=== PATIENT | female | born 1965 | race Caucasian/White ===

== ENCOUNTER 2020-09-13 13:01 | Emergency (ER) | payer OTHER, SELFPAY ==
[2020-09-13 13:25] VITALS: BP 140/89; PULSE 66; RESP 20; TEMP 37; O2SAT 100; BMI 20.5
--- NOTE | 2020-09-13 13:56 | HMH.EDUTC ---
[facility] [place] Impression: Exposure to COVID-19 virus Disposition: Home, Self-Care Condition on Discharge: Good Instructions: DI for Cough -- Adult, DI for COVID-19 (Suspected or Confirmed ), Coronavirus Disease 2019, COVID-19: Testing and Tracing, Preventing the Spread of Coronavirus Discharge Instructions Additional Instructions: *Monitor Temp, Over the counter Motrin or Tylenol as directed/as needed Tylenol every 4 hours and Motrin every 6 hours (as long as your family doctor has told you that you can take it) for fever or pain. and straight to ER if unable to lower temp less than 101.0 after medication given Follow up IMMEDIATELY for new or worsening symptoms or no Noticeable improvement over the next 48-72 hours. 911 for difficulty breathing or swallowing Follow up with your Family Doctor if your symptoms worsen or no improvement You were tested for today for COVID19 your test result should be back in the next 24-48 hours, you may call to the [facility] to see if your test results are back in the next 48 hours [phone] [facility] hours are 9am-9pm You was given a handout with instructions for Self Quarantine and Self isolation for while you wait on test results and what to do if they are positive If you are positive the Health Dept will be contacting you also Prescriptions: Benzonatate [Tessalon Perle 100mg Cap*] 100 mg PO TID PRN #15 cap PRN Reason: Cough Transmission Status: Pending to [facility] Referrals: Isauro Leach MD [Primary Care Provider] - Time of Disposition: 14:08 Medical Decision Making - Chuck Inquiry Pt receiving controlled substance: No Chuck was queried for this patient: No Vital Signs: 09/13/20 13:25 Temperature 98.6 F Temperature Source Oral Pulse Rate [Right Brachial] 66 Respiratory Rate 20 Blood Pressure [Right Arm] 140/89 Blood Pressure Mean [Right Arm] 106 Blood Pressure Source [Right Arm] Automatic Cuff Blood Pressure Position [Right Arm] Sitting 02 Sat by Pulse Oximetry 100 Oxygen Delivery Method Room Air Orders (Tests/Meds): ORDERS Category Date Time Status Covid-19 Nasal PCR ([facility]) Routine Lab 09/13/20 13:25 [place] [facility] [place] - General Stated complaint: covid exposure, back and chest achy,runny nose Time Seen by Provider: 12/31/20 13:56 Mode of Arrival: Ambulatory Source of Information: Patient Limitations: No Limitations Description of Symptoms (Recalled from Triage Doc. by RN): REQUESTING COVID TEST D/T EXPOSURE; C/O RIGHT SIDE BACK PAIN, DRY COUGH, AND CHILLS X 2 DAYS HEENT Symptoms (Recalled from RN notes): No Resp Symptoms (Recalled from RN notes): Yes Skin Symptoms (Recalled from RN notes): No MS Symptoms (Recalled from RN notes): Yes Functional Status (Recalled from RN notes): WNL - History of Present Illness Provider Complaint: Patient states that she was recently around someone that tested positive for COVID States that she has been having body aches, chills, feeling like she may have a low grade fever and right upper back ache on and off with cough, State that she wanted to get tested for COVID States that right now she is not having any back pain at this time - Related Data Previous Rx's Medication Instructions Recorded Benzonatate [Tessalon Perle 100mg 100 mg PO TID PRN #15 cap 09/13/20 Cap*] Allergies Allergy/AdvReac Type Severity Reaction Status Date / Time morphine Allergy Verified 09/13/20 13:40 - Worker's Comp Is this a Worker's Comp case?: No [facility] History - Hepatitis A Screen Drug use history?: No High risk sexual behaviors?: No History of sexually transmitted infection?: No Currently employed?: No Childcare worker?: No Do you have indoor plumbing?: Yes Do you have electricity?: Yes Attestation statement:: This patient has been screened for Hepatitis A risk factors. I have reviewed the patient's past medical history: Yes - Social History Smoking Status: Never smoker Alcohol Intake: never S
[2020-09-13 14:08] VITALS: BP 140/89; PULSE 66; RESP 20; TEMP 37; O2SAT 100
--- NOTE | 2020-09-13 18:18 | PC.NURSE ---
PATIENT NOTIFIED OF POSITIVE COVID TEST AT THIS TIME
== END 2020-09-13 14:10 | disposition home or self-care (01) ==
PROVIDERS: Emergency Provider Nurse Practitioner; PCP Internal Medicine Adolescent Medicine
DX: U07.1 COVID-19 (principal); Z88.5 Allergy status to narcotic agent
CPT/HCPCS: 99202; G0463; U0003

== ENCOUNTER → 2020-09-24 12:37 | Outpatient (CLI) | payer OTHER, SELFPAY ==
[2020-09-24 14:23] LABS: Basophils % 0.7 % (0.1-2.0); Eosinophils # 0.1 K/mm3 (0.0-0.4); Eosinophils % 1.9 % (0.1-12.0); Hematocrit 50.1 % (37.0-47.0); Hemoglobin 16.2 g/dL (12.2-16.2); Lymphocytes # 1.8 K/mm3 (0.7-4.5); Lymphocytes % 35.3 % (10-50); Mean Corpuscular HGB Conc 32.2 g/dL (31.8-35.4); Mean Corpuscular Hemoglobin 29.9 pg (27.0-31.2); Mean Platelet Volume 7.9 fl (7.4-10.4); Monocytes # 0.4 K/mm3 (0.1-1.0); Monocytes % 7.1 % (1.7-9.3); Neutrophils # 2.8 K/mm3 (1.8-7.8); Neutrophils % 55.1 % (37.0-80.0); Platelet Count 418 K/mm3 (142-424); Red Blood Count 5.39 M/mm3 (4.20-5.40); White Blood Count 5.1 K/mm3 (4.8-10.8)
[2020-09-24 15:24] LABS: Chloride 100 mmol/L (98-107); Sodium 138 mmol/L (136-145)
[2020-09-24 15:25] LABS: Potassium 4.6 mmoL/L (3.5-5.1)
[2020-09-24 15:27] LABS: Alanine Aminotransferase 37 U/L (12-78); Albumin Level 5.2 g/dl (3.5-5.0); Albumin/Globulin Ratio 1.3 (1.1-1.8); Alkaline Phosphatase 66 U/L (38-126); Anion Gap 14.6 mEq/L (5-15); Aspartate Amino Transferase 35 U/L (14-36); Bilirubin,Total 0.7 mg/dl (0.2-1.3); Blood Urea Nitrogen 15 mg/dl (7-17); Carbon Dioxide 28 mmol/L (22.0-30.0); Cholesterol 283 mg/dl (140-200); Estimated Glomerular Filt Rate 88 ml/min (>60); GFR (African American) 106 ML/MIN (>60); Globulin 3.9 g/dL (1.3-3.2); Total Protein,Serum 9.1 g/dl (6.3-8.2); Triglycerides 149 mg/dl (30-150); VLDL Cholesterol 30 mg/dL (0-40)
[2020-09-24 15:28] LABS: Calcium 10.5 mg/dl (8.4-10.2); Chol/HDL Ratio 3.7 (1-3.5); Glucose 93 mg/dl (74-100); HDL Cholesterol 76 mg/dl (40-60)
[2020-09-24 15:38] LABS: Direct LDL Cholesterol 158.93 mg/dL (100-129)
[2020-09-24 15:58] LABS: Thyroid Stimulating Hormone 2.18 uIU/mL (0.465-4.68)
[2020-09-26 10:20] LABS: FSH 45.3 mIU/mL (.); LH 12.1 mIU/mL (.)
== END ==
PROVIDERS: Visit Provider Internal Medicine Adolescent Medicine
DX: R07.89 Other chest pain (principal); N95.1 Menopausal and female climacteric states
CPT/HCPCS: 36415; 80053; 80061; 83001; 83002; 84443; 85025

== ENCOUNTER → 2020-09-27 09:42 | Outpatient (CLI) | payer OTHER, SELFPAY ==
--- NOTE | 2020-09-27 09:45 | MM_ITS ---
PROCEDURE: MM DIG SCREENING MAMM BI W/CAD Digital Breast Tomosynthesis Included CLINICAL INDICATION: PERIMENOPAUSAL Personal or family history of breast cancer COMPARISON: This is a baseline screening exam, patient without complaints TECHNIQUE: Standard CC and MLO images and 3D Tomosynthesis was obtained. R2 CAD reviewed. FINDINGS: Mild fibroglandular densities are seen in the upper outer quadrants of both breasts. There is a small nodular density outer quadrant left breast only seen on the exaggerated CC view. This has benign features however recommend the patient return for spot compression view and ultrasound since this is a baseline study. There are no suspicious microcalcifications. IMPRESSION: Mild to moderate breast density with asymmetric nodular density left breast BI-RAD Category: 0 Need Additional Imaging Evaluation FOLLOW-UP: IMM Immediate Follow-up Recommended (A letter has been sent to the patient regarding results of the study.) Dictated by: Dr. Roldan Baker MD 10/03/2020 10:02 Dr. Roldan Baker MD in [place] 10/03/2020 10:02
== END ==
PROVIDERS: PCP Internal Medicine Adolescent Medicine; Visit Provider Internal Medicine Adolescent Medicine
DX: Z12.31 Encounter for screening mammogram for malignant neoplasm of breast (principal); N95.1 Menopausal and female climacteric states
CPT/HCPCS: 77063; 77067

== ENCOUNTER → 2020-10-22 13:47 | Outpatient (CLI) | payer OTHER, SELFPAY ==
--- NOTE | 2020-10-22 13:58 | US_ITS ---
PROCEDURE: US BREAST LT COMPLETE CLINICAL INDICATION: ABN MAMM COMPARISON: No exams were available for comparison FINDINGS: There are tiny benign-appearing cystic lesions in the subareolar region. There is no suspicious solid lesion identified. There are couple normal appearing nodes in the axilla. There is a small oval hypoechoic nodular lesion 2 o'clock position outer breast with internal septations in this is likely a small complex cyst. IMPRESSION: No suspicious lesion seen on ultrasound exam and recommend the patient continue with yearly screening mammography Dictated by: Dr. Roldan Baker MD 10/25/2020 07:48 Dr. Roldan Baker MD in [place] 10/25/2020 07:48
--- NOTE | 2020-10-22 13:58 | MM_ITS ---
PROCEDURE: MM DIG MAMM DX UNILAT LT CAD Digital Breast Tomosynthesis Included CLINICAL INDICATION: ABN MAMM COMPARISON: MG MM DIG SCREENING MAMM BI W/CAD from 09/27/2020 US US BREAST LT COMPLETE from 10/22/2020 TECHNIQUE: Standard CC and MLO images and 3D Tomosynthesis was obtained. R2 CAD reviewed. Spot compression MLO and CC views were obtained as well. FINDINGS: Mild asymmetrical glandular elements are seen upper outer quadrant. There is a small nodular density near the axillary tail likely a low-lying node. Ultrasound performed the same date showed tiny benign-appearing cystic lesions in the subareolar region but no other abnormality. IMPRESSION: Essentially unremarkable problem solving views and recommend the patient continue with yearly screening mammography BI-RAD Category: 2 Benign Finding(s) FOLLOW-UP: 1YR 1 Year Follow-up (A letter has been sent to the patient regarding results of the study.) Dictated by: Dr. Roldan Baker MD 10/25/2020 07:46 Dr. Roldan Baker MD in [place] 10/25/2020 07:46
== END ==
PROVIDERS: PCP Internal Medicine Adolescent Medicine; Visit Provider Internal Medicine Adolescent Medicine
DX: R92.8 Other abnormal and inconclusive findings on diagnostic imaging of breast (principal)
CPT/HCPCS: 76641; 77061; 77065; G0279

== ENCOUNTER → 2021-06-12 16:25 | Outpatient (CLI) | payer OTHER, SELFPAY ==
[2021-06-12 17:18] LABS: Basophils % 0.5 % (0.1-2.0); Eosinophils # 0.1 K/mm3 (0.0-0.4); Eosinophils % 2.4 % (0.1-12.0); Hematocrit 46.2 % (37.0-47.0); Hemoglobin 14.7 g/dL (12.2-16.2); Lymphocytes # 2.7 K/mm3 (0.7-4.5); Lymphocytes % 46.7 % (10-50); Mean Corpuscular HGB Conc 31.9 g/dL (31.8-35.4); Mean Corpuscular Hemoglobin 29.7 pg (27.0-31.2); Mean Corpuscular Volume 93.1 fl (81-99); Mean Platelet Volume 7.2 fl (7.4-10.4); Monocytes # 0.5 K/mm3 (0.1-1.0); Neutrophils # 2.4 K/mm3 (1.8-7.8); Neutrophils % 41.4 % (37.0-80.0); Platelet Count 364 K/mm3 (142-424); Red Blood Count 4.96 M/mm3 (4.20-5.40); Red Cell Distribution Width 12.9 % (11.5-17.5); White Blood Count 5.7 K/mm3 (4.8-10.8)
[2021-06-12 17:24] LABS: Chloride 104 mmol/L (98-107); Potassium 5.2 mmoL/L (3.5-5.1); Sodium 139 mmol/L (136-145)
[2021-06-12 17:26] LABS: Blood Urea Nitrogen 16 mg/dl (7-17); Estimated Glomerular Filt Rate 105 ml/min (>60); GFR (African American) 127 ML/MIN (>60)
[2021-06-12 17:27] LABS: Alanine Aminotransferase 20 U/L (12-78); Albumin Level 4.6 g/dl (3.5-5.0); Albumin/Globulin Ratio 1.4 (1.1-1.8); Alkaline Phosphatase 55 U/L (38-126); Anion Gap 13.2 mEq/L (5-15); Aspartate Amino Transferase 24 U/L (14-36); Bilirubin,Total 0.2 mg/dl (0.2-1.3); Calcium 9.7 mg/dl (8.4-10.2); Carbon Dioxide 27 mmol/L (22.0-30.0); Globulin 3.4 g/dL (1.3-3.2); Glucose 90 mg/dl (74-100)
== END ==
PROVIDERS: Visit Provider Internal Medicine Adolescent Medicine
DX: R10.11 Right upper quadrant pain (principal); R10.13 Epigastric pain
CPT/HCPCS: 36415; 80053; 85025

== ENCOUNTER → 2021-06-14 09:24 | Outpatient (CLI) | payer OTHER, SELFPAY ==
[2021-06-17 11:05] LABS: H. pylori Stool Ag, EIA Negative (Negative)
== END ==
PROVIDERS: Visit Provider Internal Medicine Adolescent Medicine
DX: R10.11 Right upper quadrant pain (principal); R10.13 Epigastric pain
CPT/HCPCS: 87338

== ENCOUNTER → 2021-06-17 07:51 | Outpatient (CLI) | payer OTHER, SELFPAY ==
--- NOTE | 2021-06-17 07:54 | US_ITS ---
PROCEDURE: US GALLBLADDER CLINICAL INDICATION: RUQ PAIN COMPARISON: No exams were available for comparison FINDINGS: Pancreas: Unremarkable/Not well seen Liver: Unremarkable. There is appropriate direction of blood flow within a non dilated portal vein. Right kidney: Unremarkable appearing. No hydronephrosis. Gallbladder: There are numerous gallstones. No gallbladder wall thickening, pericholecystic fluid, or biliary dilatation is evident. IMPRESSION: Cholelithiasis otherwise negative Dictated by: Kip Barlow MD 06/17/2021 19:06 Kip Barlow MD in [place] 06/17/2021 19:06
== END ==
PROVIDERS: PCP Internal Medicine Adolescent Medicine; Visit Provider Internal Medicine Adolescent Medicine
DX: R10.11 Right upper quadrant pain (principal)
CPT/HCPCS: 76705

== ENCOUNTER → 2021-07-01 14:22 | Outpatient (CLI) | payer OTHER, SELFPAY ==
[2021-07-01 14:54] LABS: Basophils # 0.1 K/mm3 (0-0.2); Basophils % 1.4 % (0.1-2.0); Eosinophils # 0.1 K/mm3 (0.0-0.4); Eosinophils % 1.4 % (0.1-12.0); Hematocrit 47.5 % (37.0-47.0); Hemoglobin 15.4 g/dL (12.2-16.2); Lymphocytes # 2.5 K/mm3 (0.7-4.5); Lymphocytes % 42.3 % (10-50); Mean Corpuscular HGB Conc 32.4 g/dL (31.8-35.4); Mean Corpuscular Hemoglobin 30.3 pg (27.0-31.2); Mean Corpuscular Volume 93.4 fl (81-99); Mean Platelet Volume 8.1 fl (7.4-10.4); Monocytes # 0.6 K/mm3 (0.1-1.0); Monocytes % 10.1 % (1.7-9.3); Neutrophils # 2.6 K/mm3 (1.8-7.8); Neutrophils % 44.8 % (37.0-80.0); Platelet Count 372 K/mm3 (142-424); Red Blood Count 5.09 M/mm3 (4.20-5.40); Red Cell Distribution Width 13.4 % (11.5-17.5); White Blood Count 5.8 K/mm3 (4.8-10.8)
[2021-07-01 15:16] LABS: Alanine Aminotransferase 24 U/L (12-78); Albumin Level 4.6 g/dl (3.5-5.0); Albumin/Globulin Ratio 1.4 (1.1-1.8); Alkaline Phosphatase 45 U/L (38-126); Anion Gap 9.6 mEq/L (5-15); Aspartate Amino Transferase 25 U/L (14-36); Bilirubin,Total 0.4 mg/dl (0.2-1.3); Blood Urea Nitrogen 11 mg/dl (7-17); Calcium 10.3 mg/dl (8.4-10.2); Carbon Dioxide 32 mmol/L (22.0-30.0); Chloride 101 mmol/L (98-107); Estimated Glomerular Filt Rate 88 ml/min (>60); GFR (African American) 106 ML/MIN (>60); Globulin 3.4 g/dL (1.3-3.2); Glucose 83 mg/dl (74-100); Potassium 4.6 mmoL/L (3.5-5.1); Sodium 138 mmol/L (136-145)
== END ==
PROVIDERS: Visit Provider Surgery
DX: Z01.812 Encounter for preprocedural laboratory examination (principal); Z11.52 Encounter for screening for COVID-19; K80.20 Calculus of gallbladder without cholecystitis without obstruction
CPT/HCPCS: 36415; 80053; 85025; C9803; U0003; U0005

== ENCOUNTER 2021-07-02 07:10 | Day surgery (SDC) | payer OTHER, SELFPAY ==
[2021-07-02] VITALS (12 sets, daily range): BP systolic 106–156; BP diastolic 75–98; PULSE 54–83; RESP 14–18; TEMP 36.2–43; O2SAT 94–100; BMI 21.1
[2021-07-02 08:01] LABS: HCG Qualitative, Serum Negative (Negative)
--- NOTE | 2021-07-02 08:28 | HMH.ANESCL ---
[facility] Anesthesia Checklist - Patient Identification Patient Identification: Arm Band, Verbal (Name & ) - Structural Data Admitted From: Home Planned Operative Procedure/s: Laparascopic Cholecystectomy Consent for Planned Operative Procedure(s) Verified: Yes Verified Documents: Surgical Consent - NPO Status Verified Time NPO: 00:00 - Additional verifications Anesthesia Reactions: No Hx Blood Transfusions: No Blood Transfusion Reaction: No - Cardiovascular Assessment Heart Sounds: S1 & S2 Pulse Rhythm: Regular - Airway Assessment C-Spine Mobility Assessed: Yes TMJ Mobility Assessed: Yes - Neurological Assessment Level of Consciousness: Awake, Alert, Appropriate - Anesthesia Plan Anesthesia Risk discussed: Yes ASA Class: II Anesthesia Type: General [facility] History I have reviewed the patient's past medical history: Yes Medical History: Denies:: Cancer, Diabetes Mellitus Type 1, Diabetes Mellitus Type 2, Internal Pacemaker, MRSA, Seizures *Have you ever received a pneumonia vaccine?: Yes *Have you received a flu vaccine this season?: No Other Medical History: Denies: Blood Transfusion Reaction Anesthesia experience/problems:: no family history Other Surgeries: Yes: . No: Pacemaker Amputation: No Fractures: Yes (left arm) - *Social History Last grade of school completed: Advanced degree Smoking Status: Never smoker Alcohol Intake: never Substance Use Type: denies use *Occupational Status:: employed Housing: house Household Members: spouse *Travel in the last 8 weeks: None Family Hx:: Coronary Artery Disease, Diabetes
--- NOTE | 2021-07-02 09:17 | HMH.OPNOTE ---
Date of procedure: 07/02/21 Pre-op Diagnosis:: Symptomatic gallstones Post-op Diagnosis:: Same Procedure performed:: Laparoscopic cholecystectomy Surgeon:: Wilmer Herndon MD [employer] EXECUTIVE:: Other Anesthesia: GETA Estimated blood loss (mL): 15 Clinical Note:: Patient is a very pleasant 55-year-old female referred by Dr. Isauro Leach for gallstones. She states that about a year ago she was having some right upper flank pain. This was felt to be likely musculoskeletal. However, recently she has had more persistent symptoms of pain in the right back radiating around to her right upper quadrant and into her chest. This seems to be worse with certain foods. She had severe pain with eating chili. She has been limiting her diet significantly which has helped somewhat. She has significant nausea associated with the pain. She underwent gallbladder ultrasound which reveals numerous gallstones without any gallbladder wall thickening with a normal common bile duct. She has a very strong family history of gallbladder disease. Operative findings:: She had somewhat of a distended gallbladder with multiple small to moderate stones Operative note:: Patient was taken to the operating room. She was positioned in a supine position. General anesthesia was induced via endotracheal tube. Abdomen was prepped and draped in the standard surgical fashion. Subumbilical skin incision was made and while performing abdominal wall lift Veress needle was inserted. CO2 pneumoperitoneum was achieved to 15 mmHg. 11 mm optical trocar was inserted at the umbilicus. Intraperitoneal contents were visualized. She was positioned in reverse Trendelenburg left side down. A couple 5 mm trochars were inserted in the right upper abdomen. 10 mm trocar was inserted in the epigastrium. Gallbladder was easily identified and grasped retracted anteriorly and superiorly over the dome of the liver. Infundibulum of the gallbladder was grasped retracted anterior laterally. Blunt dissection was carried out the neck of the gallbladder bluntly incising the visceral peritoneum. The cystic duct and cystic artery were clearly identified and isolated. Cystic duct was multiply clipped and sharply divided. Cystic artery was carefully coagulated with MEL ultrasonic harmonic kb and divided. The gallbladder was dissected free from the liver in a retrograde fashion using MEL ultrasonic harmonic kb. Gallbladder was placed within an Endo Catch retrieval device and removed from the peritoneal cavity via the umbilical trocar site which required some extension of the fascial incision for delivery. Gallbladder fossa was inspected for hemostasis which was assured. Trochars were removed as CO2 pneumoperitoneum was evacuated. Fascia at the umbilicus was closed with several interrupted 0 Vicryl sutures. 0 Vicryl sutures placed in the anterior fascia at the epigastric site. Local anesthetic was infiltrated. Skin incisions closed with 4-0 Monocryl subcuticular fashion. Steri-Strips and dressings were applied. Condition: stable Disposition: PACU Specimens:: Gallbladder and contents Complications:: None immediate
--- NOTE | 2021-07-02 09:21 | P.PN_ITS ---
[facility] Anesthesia Record Part I Intake, IV Amount: 550 Estimated blood loss (mL): 10 Urine output (mL): 0 Blood Pressure: 156/96 SaO2: 94 Pulse Rate: 83 Respiratory Rate: 16 Temperature: 97.9 F Patient is:: Drowsy, Oral/Nasal airway Stable to PACU at:: 09:20
--- NOTE | 2021-07-02 11:41 | P.PN_ITS ---
[facility] Anesthesia Record Part II Discharge Time: 10:00 Destination: Home PACU nurse assessment reviewed?: Yes Patient Condition:: Good Anesthesia Complications:: None none Swallowing reflex intact?: Yes Cyanosis?: No Blood Pressure: 106/98 Pulse Rate: 63 Temperature: 97.1 F Mental Status: Alert & Oriented Pain level:: 5 Nausea and/or vomitting:: None Intake, IV Amount: 0
== END 2021-07-02 10:30 | disposition home or self-care (01) ==
LOC: OR 07:12
PROVIDERS: PCP Internal Medicine Adolescent Medicine; Visit Provider Surgery
PROC: 0FT44ZZ Resection of Gallbladder, Percutaneous Endoscopic Approach (ICD-10-PCS; CPT 47562; principal; 2021-07-02 10:00)
DX: K80.80 Other cholelithiasis without obstruction (principal); Z83.3 Family history of diabetes mellitus; Z82.49 Family history of ischemic heart disease and other diseases of the circulatory system; Z88.6 Allergy status to analgesic agent
CPT/HCPCS: 47562; 84703; 96374; J2405; J2710

== ENCOUNTER → 2021-10-30 10:46 | Outpatient (CLI) | payer OTHER, SELFPAY ==
--- NOTE | 2021-10-30 10:52 | MM_ITS ---
PROCEDURE INFORMATION: Exam: MG Bilateral Screening 3D Mammography Exam date and time: 10/30/2021 10:52 AM Age: 56 years old Clinical indication: Screening mammogram. TECHNIQUE: Imaging protocol: Bilateral Screening tomosynthesis and 2D mammography including computer-aided detection (CAD) when performed. COMPARISON: 1. MG MM DIG MAMM DX UNILAT LT CAD 10/22/2020 2:06 PM 2. MG MM DIG SCREENING MAMM BI W/CAD 09/27/2020 9:57 AM 3. US BREAST LT COMPLETE 10/22/2020 2:29 PM FINDINGS: MAMMOGRAPHY: Breast composition: The breast tissue is heterogeneously dense, which may obscure small masses. Mass: None. Architectural distortion: No new or suspicious architectural distortion. Calcifications: No new or suspicious calcifications are present Asymmetric density: No new or suspicious asymmetric density is present Skin thickening: None. Axillary adenopathy: None. IMPRESSION: No mammographic evidence of malignancy. Recommend annual screening mammography unless otherwise clinically indicated. ASSESSMENT: BI-RADS category 1: Negative
== END ==
PROVIDERS: PCP Internal Medicine Adolescent Medicine; Visit Provider Internal Medicine Adolescent Medicine
DX: Z12.31 Encounter for screening mammogram for malignant neoplasm of breast (principal)
CPT/HCPCS: 77063; 77067

== ENCOUNTER → 2021-11-04 11:48 | Outpatient (CLI) | payer OTHER, SELFPAY ==
--- NOTE | 2021-11-04 11:56 | XR_ITS ---
FINAL REPORT CLINICAL HISTORY: RIGHT ANTERIOR SHOULDER PAIN FINDINGS: RIGHT SHOULDER Three views demonstrate no acute fracture or dislocation. The visualized joint spaces are normally aligned. The soft tissues are unremarkable. IMPRESSION: No acute process. Reviewed, Interpreted and Dictated by Handy Saenz MD Transcribed by Trinidad Interiano Authenticated by Handy Saenz MD on 11/04/2021 02:58:37 PM [facility]
== END ==
PROVIDERS: PCP Internal Medicine Adolescent Medicine; Visit Provider Internal Medicine Adolescent Medicine
DX: M25.511 Pain in right shoulder (principal)
CPT/HCPCS: 73030

== ENCOUNTER 2021-12-13 11:00 | Outpatient (RCR) | payer OTHER, SELFPAY ==
--- NOTE | 2021-11-18 11:55 | HMH.OTOPEV ---
OT Inpatient Evaluation Rehab OT Outpatient Eval Start: 11/18/21 10:29 Freq: Status: Active Protocol: Document 11/18/21 10:51 AIMEE (Rec: 11/18/21 11:03 AIMEE [id number]) Electronically Signed By Radha Henderson OT 11/18/21 10:51 Outpatient Therapy Subjective History Subjective History 56 year female referred to skilled OP OT services for RUE shoulder pain. Patient stated having this pain for the past month. X-ray completed on with no acute findings. Chief Complaint Pain,Weakness Symptom Type Ache Symptoms Relieved By Nothing Symptoms Aggravated By Physical Activity Prior Functional Limitations None Current Functional Limitations Reaching,Lifting,Recreation Activity Symptom Description Intermittent Level of pain today (0-10) 1 Pain scale - at its best (0-10) 1 Pain scale - at its worst (0-10) 8 Shoulder/Elbow Eval Shoulder Objective Measurements Shoulder ROM Right Shoulder Abduction Active Range of 85 Motion (degrees) Shoulder Flexion Active Range of Motion 135 (degrees) Query Text: Shoulder External Rotation Active Range 80 of Motion (degrees) Shoulder Internal Rotation Active Range 60 of Motion (degrees) pain with active ROM shoulder exam right standard Shoulder MMT Shoulder Abduction Strength Grade 3- Fair- Shoulder Flexion Strength Grade 3- Fair- Infraspinatus/Teres Minor Strength Grade 3- Fair- Shoulder External Rotation Strength 3- Fair- Grade Shoulder Internal Rotation Strength 3- Fair- Grade Shoulder Special Tests impingement sign present shoulder exam right standard Shoulder Drop Arm Test Positive Right Shoulder Empty Can (Supraspinatus) Test Positive Right Shoulder Sal-Abhishek Impingement Positive Right Test Elbow Objective Measurements OT Outpatient Assessment Impairments Problems/Impairments Impaired Range of Motion, Impaired Strength,Subjective C /O Pain Prognosis Rehab Potential Good Clinical Impression Consistent with Diagnosis Yes Short Term Goals Number of Weeks 2 Increase Range of Motion Yes: AROM of R UE shld flex: 145; abd: 100; er:85; ir: 65 Increase Strength Yes: Improve RUE shoulder strength to 3- to 3/5 throughout Decrease Subjectiv
== END 2021-12-13 12:00 | disposition home or self-care (01) ==
LOC: OT 11:00
PROVIDERS: Visit Provider Internal Medicine Adolescent Medicine
DX: M25.511 Pain in right shoulder (principal)
CPT/HCPCS: 97010; 97014; 97110; 97140; 97165; 97530; G0283

== ENCOUNTER → 2023-03-10 13:13 | Outpatient (CLI) | payer OTHER, SELFPAY ==
--- NOTE | 2023-03-10 13:14 | US_ITS ---
PROCEDURE: US TRANSVAGINAL CLINICAL INDICATION: dyspareunia COMPARISON: No exams were available for comparison FINDINGS: UTERUS: 8cm x 4cmx 3cm with a combined endometrial thickness of 4.2mm. A Caesarean section scar is evident. 1. Fibroid is evident in the fundus of the uterus posteriorly. It measures 0.6 cm x 0.6 cm x 0.6 cm 2. Fibroid anteriorly and laterally to the right. It measures 1.5 cm by 1.9 cm x 1.9 cm. 3. Posterior fibroid measuring 2.8 cm by 1.6 cm by 2.2 cm. LEFT OVARY: [id number] with a volume of 8.5ml. RIGHT OVARY: 5cmx [id number] with a volume of 118.8ml. Within the right ovary there is a cyst measuring 5.4 cm by 5.0 cm x 6.2 cm Both ovaries are seen. Doppler flow to both ovaries are seen. There is no fluid in the cul-de-sac. IMPRESSION: 1. Uterus is anteverted and normal in shape and size. 2. There are 3 distinct fibroids within the uterus. The largest is 2.8 centimeters in size. 3. The left ovary appears normal. 4. The right ovary is almost entirely taken up by a 5.4 cm x 6 cm simple appearing cyst. 5. There is no fluid in the cul-de-sac. Dictated by: aCsey Calloway MD 03/11/2023 15:46 Casey Calloway MD in [place] 03/11/2023 15:46
--- NOTE | 2023-03-10 13:14 | MM_ITS ---
PROCEDURE INFORMATION: Exam: MG Bilateral Screening 3D Mammography Exam date and time: 03/10/2023 1:05 PM Age: 57 years old Clinical indication: Screening. No family history of breast cancer. TECHNIQUE: Imaging protocol: Bilateral Screening tomosynthesis and 2D mammography including computer-aided detection (CAD) when performed. COMPARISON: 1. MG MM DIG SCREENING MAMM BI W/CAD 10/30/2021 10:50 AM 2. MG MM DIG MAMM DX UNILAT LT CAD 10/22/2020 2:06 PM 3. MG MM DIG SCREENING MAMM BI W/CAD 09/27/2020 9:57 AM 4. US BREAST LT COMPLETE 10/22/2020 2:29 PM FINDINGS: MAMMOGRAPHY: Breast composition: There are scattered areas of fibroglandular density. Mass: No suspicious mass. Architectural distortion: None. Calcifications: No suspicious calcifications. Asymmetric density: None. Skin thickening: None. Axillary adenopathy: None. IMPRESSION: No mammographic evidence of malignancy. Annual screening is recommended unless otherwise clinically indicated. ASSESSMENT: BI-RADS Category 1: Negative
== END ==
PROVIDERS: PCP Internal Medicine Adolescent Medicine; Visit Provider Obstetrics & Gynecology
DX: N94.10 Unspecified dyspareunia (principal); Z12.31 Encounter for screening mammogram for malignant neoplasm of breast
CPT/HCPCS: 76830; 77063; 77067

== ENCOUNTER → 2023-05-20 12:43 | Outpatient (CLI) | payer OTHER, SELFPAY ==
--- NOTE | 2023-05-20 12:44 | US_ITS ---
PROCEDURE: US TRANSVAGINAL CLINICAL INDICATION: pelvic pain and ovarian cyst COMPARISON: US US TRANSVAGINAL from 03/10/2023 FINDINGS: Transvaginal sonographic images of the pelvis were obtained. UTERUS: 7.9 cm x 4.5 cmx 3.1 cm with a combined endometrial thickness of 3.9mm. Three fibroids are seen. scar is visualized. Fibroid 1. 1.1 cm x 0.6 cm Fibroid 2. 1.2 cm x 1.5 cm Fibroid 3. 1 cm x 1.3 cm x 1.2 cm LEFT OVARY: Not visualized today RIGHT OVARY: 6.4 cmx 6.1 cmx4.6 cm with a volume of 93.6ml. An ovarian cyst is present measuring 5.4 cm by 5.9 cm x 4.7 cm Doppler flow to right ovary is seen. There is no fluid in the cul-de-sac. IMPRESSION: 1. Anteverted uterus, normal in shape and size. Endometrium is thin. 2. There are 3 separate fibroids within the uterus that have not grown in size. 3. There continues to be a 6 cm simple appearing cyst within the right ovary. It is not grown or regressed in size. 4. No fluid in the cul-de-sac. Dictated by: Csaey Calloway MD 05/20/2023 14:27 Casey Calloway MD in [place] 05/20/2023 14:27
== END ==
PROVIDERS: PCP Internal Medicine Adolescent Medicine; Visit Provider Obstetrics & Gynecology
DX: R10.2 Pelvic and perineal pain (principal)
CPT/HCPCS: 76830

== ENCOUNTER → 2023-06-04 10:19 | Outpatient (CLI) | payer OTHER, SELFPAY ==
[2023-06-04 11:26] LABS: Basophils % 1.1 % (0.1-2.0); Eosinophils # 0.1 K/mm3 (0.0-0.4); Eosinophils % 2.4 % (0.1-12.0); Hemoglobin 14.4 g/dL (12.2-16.2); Lymphocytes # 2.1 K/mm3 (0.7-4.5); Mean Corpuscular Hemoglobin 27.2 pg (27.0-31.2); Mean Corpuscular Volume 90.9 fl (81-99); Mean Platelet Volume 8.1 fl (7.4-10.4); Monocytes # 0.3 K/mm3 (0.1-1.0); Monocytes % 8.4 % (1.7-9.3); Neutrophils # 1.4 K/mm3 (1.8-7.8); Neutrophils % 35.1 % (37.0-80.0); Platelet Count 303 K/mm3 (142-424); Red Blood Count 5.29 M/mm3 (4.20-5.40); Red Cell Distribution Width 14.6 % (11.5-17.5)
[2023-06-04 11:28] LABS: MANUAL DIFFERENTIAL MANUAL DIFFERENTIAL (MANUAL DIFF)
[2023-06-04 11:38] LABS: Hemoglobin A1C 5.3 % (4.0-6.0)
[2023-06-04 12:15] LABS: Chloride 105 mmol/L (98-107)
[2023-06-04 12:16] LABS: Potassium 4.5 mmoL/L (3.5-5.1); Sodium 141 mmol/L (136-145)
[2023-06-04 12:18] LABS: Alanine Aminotransferase 29 U/L (12-78); Alkaline Phosphatase 72 U/L (38-126); Anion Gap 13.5 mEq/L (5-15); Aspartate Amino Transferase 31 U/L (14-36); Bilirubin,Total 0.4 mg/dl (0.2-1.3); Blood Urea Nitrogen 18 mg/dl (7-17); Carbon Dioxide 27 mmol/L (22.0-30.0); Estimated Glomerular Filt Rate 74 ml/min (>60); GFR (African American) 90 ML/MIN (>60); Iron 73 ug/dL (37-170)
[2023-06-04 12:19] LABS: Albumin Level 4.3 g/dl (3.5-5.0); Albumin/Globulin Ratio 1.4 (1.1-1.8); Calcium 9.4 mg/dl (8.4-10.2); Glucose 88 mg/dl (74-100); Total Protein,Serum 7.3 g/dl (6.3-8.2)
[2023-06-04 12:28] LABS: Total Iron Binding Capacity 370 ug/dL (265-497)
[2023-06-04 12:35] LABS: Eosinophils % 5 % (0-3); Lymphocytes % 46 % (10-50); Monocytes % 8 % (2-9); Neutrophils % 40 % (42-76); Total Cells Counted 100
[2023-06-04 12:37] LABS: Platelet Estimate Slight Increase; RBC Morphology Normal
[2023-06-04 12:50] LABS: Thyroid Stimulating Hormone 0.89 uIU/mL (0.465-4.68)
[2023-06-04 16:05] LABS: Vitamin B12 646 pg/mL (239-931)
[2023-06-05 08:36] LABS: Estradiol 16.3 pg/mL (.)
[2023-06-14 16:28] LABS: 1,25 Dihydroxy Vitamin D 50 pg/mL (.); 1,25-Dihydroxy, Vitamin D-2 <10 pg/mL (.); 1,25-Dihydroxy, Vitamin D-3 50 pg/mL (.)
== END ==
LOC: LAB 10:20
PROVIDERS: PCP Internal Medicine Adolescent Medicine; Visit Provider Obstetrics & Gynecology
DX: Z00.00 Encounter for general adult medical examination without abnormal findings (principal); N95.1 Menopausal and female climacteric states; N83.209 Unspecified ovarian cyst, unspecified side; N94.10 Unspecified dyspareunia; R53.83 Other fatigue
CPT/HCPCS: 36415; 80053; 82607; 82652; 82670; 82728; 83001; 83036; 83540; 83550; 84443; 85007; 85025

== ENCOUNTER → 2023-09-03 09:53 | Outpatient (CLI) | payer OTHER, SELFPAY ==
[2023-09-03 17:54] LABS: Adenovirus,PCR Not Detected (NotDetected); Coronavirus 19, PCR Not Detected (NotDetected); Coronavirus 229E Not Detected (NotDetected); Coronavirus NL63 Not Detected (NotDetected); Coronavirus OC43 Not Detected (NotDetected); Coronovirus HKU1,PCR Not Detected (NotDetected); Human Metapneumovirus Not Detected (NotDetected); Influenza A, PCR Not Detected (NotDetected); Influenza AH1, 2009 Not Detected (NotDetected); Influenza AH1, PCR Not Detected (NotDetected); Influenza AH3,PCR Not Detected (NotDetected); Influenza B, PCR Not Detected (NotDetected); Parainfluenza 1, PCR Not Detected (NotDetected); Parainfluenza 2, PCR Not Detected (NotDetected); Parainfluenza 3, PCR Not Detected (NotDetected); Parainfluenza 4, PCR Not Detected (NotDetected); Respiratory Syncytial Virus Not Detected (NotDetected); Rhinovirus/Enterovirus Not Detected (NotDetected)
== END ==
LOC: LAB.DROPOF 09-04 09:55
PROVIDERS: PCP Internal Medicine Adolescent Medicine; Visit Provider Student in an Organized Health Care Education/Training Program
DX: J02.9 Acute pharyngitis, unspecified (principal); R05.9 Cough, unspecified; R51.9 Headache, unspecified; R09.81 Nasal congestion; R49.0 Dysphonia
CPT/HCPCS: 87581; 87632; 87635; 87798

== ENCOUNTER 2023-09-22 07:45 | Outpatient (CLI) | payer OTHER, SELFPAY ==
--- NOTE | 2023-09-22 07:45 | US_ITS ---
PROCEDURE: US TRANSVAGINAL CLINICAL INDICATION: follow up ultrasound for ovarian cysts COMPARISON: US US TRANSVAGINAL from 05/20/2023 FINDINGS: Transvaginal sonographic images of the pelvis were obtained. UTERUS: 7.4cm x 3.5cmx 3.0cm anteverted with a combined endometrial thickness of 2.4mm. There are 2 fibroids seen within the uterus. Fibroid 1: 1.0 cm by 0.8 cm x 1.1 cm. Fibroid 2: 0.9 cm x 0.5 cm x 0.5 cm These have gotten smaller since her last ultrasound. LEFT OVARY: 2.0cmx1.3cmx1.1cm with a volume of 1.4ml. RIGHT OVARY: 6.1cmx 6.0cmx4.3cm with a volume of 83ml. There is a persistent right ovarian cyst measuring 5.7 cm x 4.3 cm x 5.5 cm. The fluid within the cyst has some echogenicities, likely a mucous producing cyst. The cyst has not enlarged and may have shrunk 3-4 millimeters. There is a small cystic structure measuring 1.3 cm by 1.1 cm x 1.2 cm inferior to the right ovary. Both ovaries are seen. Doppler flow to both ovaries are seen. There is no fluid in the cul-de-sac. IMPRESSION: 1. Anteverted uterus normal in shape and size. The endometrium is thin. 2. There are 2 fibroids within the uterus measuring 1.1 cm and 0.9 cm. They are smaller than her previous exam 05/20/2023. 3. There is a 5.7 cm cyst that persists on the right ovary. There are echogenicities within the cyst fluid possibly indicating mucus. 4. No fluid in the cul-de-sac. 5. Suggest repeat ultrasound in 3 months. Dictated by: Casey Calloway MD 09/22/2023 10:51 Casey Calloway MD in [place] 09/22/2023 10:51
== END 2023-09-22 23:59 ==
LOC: RAD 07:45
PROVIDERS: PCP Internal Medicine Adolescent Medicine; Visit Provider Obstetrics & Gynecology
DX: N83.201 Unspecified ovarian cyst, right side (principal)
CPT/HCPCS: 76830

== ENCOUNTER 2023-10-29 09:50 | Outpatient (CLI) | payer OTHER, SELFPAY ==
[2023-10-29 10:20] LABS: Basophils % 0.5 % (0.1-2.0); Eosinophils # 0.1 K/mm3 (0.0-0.4); Eosinophils % 1.9 % (0.1-12.0); Hematocrit 44.5 % (37.0-47.0); Hemoglobin 14.8 g/dL (12.2-16.2); Lymphocytes % 41.3 % (10-50); Mean Corpuscular HGB Conc 33.3 g/dL (31.8-35.4); Mean Corpuscular Hemoglobin 29.9 pg (27.0-31.2); Mean Corpuscular Volume 89.8 fl (81-99); Mean Platelet Volume 7.2 fl (7.4-10.4); Monocytes # 0.4 K/mm3 (0.1-1.0); Neutrophils # 2.3 K/mm3 (1.8-7.8); Neutrophils % 47.4 % (37.0-80.0); Platelet Count 333 K/mm3 (142-424); Red Blood Count 4.96 M/mm3 (4.20-5.40); Red Cell Distribution Width 13.3 % (11.5-17.5); White Blood Count 4.8 K/mm3 (4.8-10.8)
[2023-10-29 10:58] LABS: Alanine Aminotransferase 55 U/L (12-78); Albumin Level 4.3 g/dl (3.5-5.0); Albumin/Globulin Ratio 1.5 (1.1-1.8); Alkaline Phosphatase 73 U/L (38-126); Anion Gap 10.2 mEq/L (5-15); Aspartate Amino Transferase 39 U/L (14-36); Bilirubin,Total 0.4 mg/dl (0.2-1.3); Blood Urea Nitrogen 16 mg/dl (7-17); Calcium 9.7 mg/dl (8.4-10.2); Carbon Dioxide 30 mmol/L (22.0-30.0); Chloride 106 mmol/L (98-107); Estimated Glomerular Filt Rate 87 ml/min (>60); GFR (African American) 105 ML/MIN (>60); Globulin 2.9 g/dL (1.3-3.2); Glucose 81 mg/dl (74-100); Potassium 4.2 mmoL/L (3.5-5.1); Sodium 142 mmol/L (136-145); Total Protein,Serum 7.2 g/dl (6.3-8.2)
[2023-10-29 11:18] LABS: HCG,Quantitative < 2 mIU/ml (0-5.42)
== END 2023-10-29 23:59 ==
LOC: LAB 09:51
PROVIDERS: PCP Internal Medicine Adolescent Medicine; Visit Provider Obstetrics & Gynecology
DX: N94.10 Unspecified dyspareunia (principal)
CPT/HCPCS: 36415; 80053; 84702; 85025

== ENCOUNTER 2023-11-05 06:08 | Observation (INO) | payer OTHER, SELFPAY ==
[2023-11-03 08:58] VITALS: BMI 23.7
[2023-11-05] VITALS (23 sets, daily range): BP systolic 105–152; BP diastolic 54–92; PULSE 65–100; RESP 16–22; TEMP 35.9–36.9; O2SAT 95–100
[2023-11-05] MEDS: LACTATED RINGERS 1000ML 1,000 ML 100 ML IV (06:22)
[2023-11-05] MEDS: CELECOXIB 100MG CAPSULE 400 MG PO (06:38)
[2023-11-05] MEDS: GABAPENTIN 300MG CAPSULE 600 MG (06:40)
[2023-11-05] MEDS: ACETAMINOPHEN 500MG TAB 1000 MG PO ×3 (06:41→18:33)
--- NOTE | 2023-11-05 06:52 | EXP.ANES.CKL ---
[facility] Disclaimer: The information contained in this section may have been updated after the patient was seen, as this information can be updated by other users. Medical History delivery delivered Dyspareunia in female Fibroid, uterine Hot flashes due to menopause Ovarian cyst Right groin pain Vaginal atrophy Surgical History H/O tubal ligation History of cholecystectomy Family History Other Alcoholism Cancer Coronary artery disease Diabetes Heart attack Hyperlipidemia Hypertension Thyroid disorder Social History Smoking Status: Never smoker second hand exposure: No alcohol intake: never substance use type: denies use current occupational status: employed Travel in the last 8 weeks: None household members: spouse housing: house current occupational exposures/hazards: No caffeine: Yes [facility] Anesthesia Checklist Patient Identification Patient Identification: Arm Band and Family Structural Data Admitted From: Home Planned Operative Procedure/s: H with BSO Consent for Planned Operative Procedure(s) Verified: Yes Verified Documents: Surgical Consent and History and Physical NPO Status Verified Time NPO: 00:00 Additional verifications Patient : No Anesthesia Reactions: No Hx Blood Transfusions: No Blood Transfusion Reaction: No Cephalosporin Allergy: No Previous Colonoscopy: No Airway Assessment Mallampati Score:: Class III C-Spine Mobility Assessed: Yes TMJ Mobility Assessed: Yes Dentition: Edentulous Neurological Assessment Level of Consciousness: Awake, Alert, Appropriate and Follows Commands Hx Seizures: No Numbness or tingling in extremities: No Anesthesia Plan Anesthesia Risk discussed: Yes ASA Class: I Anesthesia Type: General Preoperative Comments Pre-Operative Comments: Allergy to Morphine.
--- NOTE | 2023-11-05 07:22 | P.HP_ITS ---
History of Present Illness *Admission Date: 11/05/23 *Reason for visit:: Scheduled surgery *History of present illness: Mrs Ivana Lutz is very pleasant 58 yo P2000 who presents to [facility] for scheduled procedure. She complains of dyspareunia and ovarian cyst. Pelvic ultrasound 09/22/23 demonstrated anteverted uterus normal in shape and size. The endometrium is thin. There are 2 fibroids within the uterus measuring 1.1 cm and 0.9 cm. They are smaller than her previous exam 05/20/2023. There is a 5.7 cm cyst that persists on the right ovary. There are echogenicities within the cyst fluid possibly indicating mucus. No fluid in the cul-de-sac. We have been monitoring ovarian cyst since February 2023. She reports continued dyspareunia with no improvement with vaginal estrogen cream or lubrication. She reports pain is deep. She would like to proceed with definitive surgical intervention with hysterectomy, BSO. Surgical history significant for cholecystectomy and c- section x 2 with tubal ligation at time of last . Hot flashes well controlled with Veozah. [facility] Disclaimer: The information contained in this section may have been updated after the patient was seen, as this information can be updated by other users. Medical History delivery delivered Dyspareunia in female Fibroid, uterine Hot flashes due to menopause Ovarian cyst Right groin pain Vaginal atrophy Surgical History H/O tubal ligation History of cholecystectomy Family History Other Alcoholism Cancer Coronary artery disease Diabetes Heart attack Hyperlipidemia Hypertension Thyroid disorder Social History Smoking Status: Never smoker second hand exposure: No alcohol intake: never substance use type: denies use current occupational status: employed Travel in the last 8 weeks: None household members: spouse housing: house current occupational exposures/hazards: No caffeine: Yes Review of Systems Review of Systems Review of systems:: pertinent systems reviewed and negative unless documented below *Gastrointestinal Gastrointestinal: Reports abdominal pain and Reports other (+ right groin pain) *Genitourinary Genitourinary: Reports dyspareunia Meds Home Medications and Allergies Home Medications Medication Instructions Recorded Confirmed Type fezolinetant 45 mg tablet (Veozah) 45 mg PO DAILY #30 tabs 06/29/23 11/05/23 Rx New Prescriptions to Start Prescriptions: Allergies Allergy/AdvReac Type Severity Reaction Status Date / Time morphine Allergy Verified 11/05/23 06:20 Exam Data for Last 24 hours Vital signs and Labs for Last 24 Hours: Temp Pulse Resp BP Pulse Ox O2 Del Method 97.5 F L 65 18 116/72 100 Room Air 11/05/23 06:24 11/05/23 06:24 11/05/23 06:24 11/05/23 06:24 11/05/23 06:24 11/05/23 06:24 I & O for Last 24 hours: Intake & Output 11/02/23 11/03/23 11/04/23 11/05/23 23:59 23:59 23:59 23:59 Weight 147 lb Constitutional Constitutional: no acute distress and cooperative *Routine HEENT Exam Head: Present normocephalic and atraumatic Eye: Absent conjunctivae pink ENT: Present mucous membranes moist *Routine Neck Exam Neck: Present full ROM *Routine Respiratory Exam Respiratory: Present CTA bilaterally and normal respiratory effort *Routine Cardiovascular Exam Cardiovascular: Present RRR *Routine Abdominal Exam Abdominal: Present soft and normoactive bowel sounds; Absent tenderness or distended *Routine Rectal Exam Rectal:: deferred *Routine Genitalia Exam Genitalia:: normal female *Routine Extremities Exam Extremities: Present full ROM; Absent edema or calf tenderness *Routine Neurological Exam Neurological: Present alert, moving all extremities and normal speech Routine Psychiatric Exam Psychiatric: Present normal affect and cooperative Assessment and Plan *Assessment and plan (1) Right groin pain: Status: Acute Category: Medical Code(s): R10.31 - Right lower quadrant pain (2) Ovarian cyst: Status: Acute Qualifiers: Laterality: right Qualified Code(s): N83.201 - Unspecified ovarian cyst, right side Category: Medical Code(s): N83.209 - Unspecified ovarian cyst, unspecified side (3) Fibroid, uterine: Status: Acute Qualifiers: Uterine leiomyoma location: unspecified location Qualified Code(s): D25.9 - Leiomyoma of uterus, unspecified Category: Medical Code(s): D25.9 - Leiomyoma of uterus, unspecified (4) Vaginal atrophy: Status: Acute Category: Medical Code(s): N95.2 - Postmenopausal atrophic vaginitis (5) Dyspareunia in female: Status: Acute Category: Medical Code(s): N94.10 - Unspecified dyspareunia Plan Reviewed TLH, BSO, possible JESSICA BSO, possible cystoscopy in detail. Discussed risks, benefits, alternatives, expectations and possible complications of surgery. Risks include but are not limited to bleeding; infection; damage to adjacent structures (bowel, bladder, nerves, blood vessels, etc) (possibly requiring further intervention and/or longer hospital stay); VTE; risks with anesthesia; and risk of . All questions addressed and answered. Patient voiced understanding of risks and possible complications. Patient desires to proceed with surgery. Consent form signed today. Proceed with scheduled TLH, BSO, possible JESSICA, BSO, possible cystoscopy
[2023-11-05] MEDS: CEFAZOLIN SODIUM 1 GM in 0.9 % SODIUM CHLORIDE 50 ML IV ×3 (07:45→22:30)
[2023-11-05] MEDS: LIDOCAINE 1% W/EPI 1:100,000 20ML VIAL 20 ML ×2 (08:21)
[2023-11-05] MEDS: METHYLENE BLUE 0.5% 10ML AMPULE 50 MG IV (08:53)
--- NOTE | 2023-11-05 09:47 | P.PNANES_ITS ---
[facility] Anesthesia Record Part I Anesthesia Record I Intake, IV Amount: 1,000 Hydration: Adequate Estimated blood loss (mL): 100 Urine output (mL): 100 Blood Products used (#): none Blood Pressure: 123/64 SaO2: 97 Pulse Rate: 97 Airway Patency: Patent Respiratory Rate: 18 Temperature: 97.4 F Patient is:: Stable Stable to PACU at:: 09:40
--- NOTE | 2023-11-05 09:59 | P.OP_ITS ---
Date of procedure: 11/05/23 Pre-op Diagnosis:: 1. Right groin pain 2. RLQ pain 3. Uterine fibroids 4. Ovarian cyst 5. Dyspareunia Post-op Diagnosis:: 1. Right groin pain 2. RLQ pain 3. Uterine fibroids 4. Ovarian cyst 5. Dyspareunia Procedure performed:: Total Laparoscopic Hysterectomy, bilateral salpingo oophorectomy Surgeon:: Ivana Davis DO Grain Combine Driver(s):: Casey Calloway MD INSIDE SAL[employer] T[employer]ITORY MANAGER:: Other ([employer] [place]) Anesthesia: GETA Estimated blood loss (mL): 100 Clinical Note:: Mrs Ivana Lutz is very pleasant 58 yo P2000 who presents to [facility] for scheduled procedure. She complains of dyspareunia and ovarian cyst. Pelvic ultrasound 09/22/23 demonstrated anteverted uterus normal in shape and size. The endometrium is thin. There are 2 fibroids within the uterus measuring 1.1 cm and 0.9 cm. They are smaller than her previous exam 05/20/2023. There is a 5.7 cm cyst that persists on the right ovary. There are echogenicities within the cyst fluid possibly indicating mucus. No fluid in the cul-de-sac. We have been m onitoring ovarian cyst since February 2023. She reports continued dyspareunia with no improvement with vaginal estrogen cream or lubrication. She reports pain is deep. She would like to proceed with definitive surgical intervention with hysterectomy, BSO. Surgical history significant for cholecystectomy and c- section x 2 with tubal ligation at time of last . Hot flashes well controlled with Veozah. Operative findings:: 1. On bimanual exam, uterus normal size and shape, midposition, fullness noted in right adnexa. No left adnexa mass noted 2. On laparoscopic exam, grossly normal appearing liver, stomach and bowel. Grossly normal appearing uterus, bilateral fallopian tubes and left ovary. Large 5-6 cm simple appearing right ovarian cyst. Bilateral ureters identified Operative note:: Discussed risks, benefits, alternatives, expectations and possible complications of surgery. All questions addressed and answered. Patient wished to proceed with surgery. Patient was wheeled back to the operating room and placed under general anesthesia without difficulty. She was placed in the dorsal lithotomy position. She was prepped and draped in normal sterile fashion. Beginning at the vagina, a callejas catheter was inserted into the bladder and draining clear urine prior to the start of the procedure. Weighted Auvuard was placed in the vaginal vault. Anterior lip of the cervix was grasped with single tooth tenaculum. Uterus sounded to 8. Isael dilators were used to dilate the cervix. Advincula uterine manipulator was inserted into the cervix with the colpotomy cup covering the cervix. Single tooth tenaculum was removed prior to complete placement of colpotomy cup over cervix. Uterine balloon was filled with 10cc of air. Vaginal balloon was filled with 80 cc of air. Weighted Auvard was removed. Attention was then turned to the abdomen. Skin just below the umbilicus was injected with 1% lidocaine with epinephrine. A 1.5 cm infraumbilical incision was made. Veress needle was tested and inserted intrabdominally. Opening pressure was 6 mm Hg. The peritoneal cavity was insulflated to 15 mm Hg. Laparoscope within 11 mm blunt trocar was inserted intrabdominally under direct visualization. Obturator and scope were removed. Laparoscope was inserted into the trocar sleeve. Abdomen and pelvis was viewed in its entirety. Examination of the peritoneal cavity revealed no signs of injury from entry and normal anatomic structures. See findings above. Pictures were taken. Bowel was swept cephalad with blunt probe. LLQ port site was transilluminated and injected with 1% lidocaine with epinephrine. A 1.5 cm incision was made and 11 mm trocar was inserted intraabdominally under direct laparoscopic visualization. Obturator was removed and sleeve was left in place. Same procedure was performed in RLQ. Right ovarian cyst was opened with laparoscopic scissors and cystic fluid was drained with suction winch driver. Bilateral ureters were identified and peristalsis noted. Next, left fallopian tube was grasped at fimbriated end. Ligasure Hook was used to clamp, ligate and transect the left IP ligament. The broad ligament was then sequentially clamped, ligated and cut working in the direction of the round ligament and being mindful of the ureter. The left round ligament was ligated an d cut. Transection was carried through the Broad ligament. Removing the left ovary and fallopian tube. Same procedure was carried out on the contralateral side. Care was taken to slowly separate the bladder off of the lower uterine segment with sharp and blunt dissection. Once the bladder was appropriately dissected off of the lower uterine segment. Bilateral uterine arteries were clamped, cauterized and cut using the Ligasure. Transection was carried through the cardinal ligament bilaterally. Hemostasis was noted. At the level of the colpotomy cup, the vaginal vault was incised circumferentially with the Ligasure monopolar hook. The uterus and cervix was pulled into the vagina and left in the vagina to hold pneumoperitoneum. The vaginal vault was closed with the Endostitch V-Lock barbed stitch. Pelvis was irrigated. Intraabdominal pressure was decreased to 5 mm Hg. Hemostasis was noted. Surgicel powder was applied over bilateral pedicles and closed vaginal vault. RLQ and LLQ trocars were removed under direct laparoscopic visualization. Pneumoperitoneum was released into the atmosphere. Infraumbilical trocar was removed under direct laparoscopic visualization to ensure no herniation of bowel or omentum. Skin incisions were reapproximated with 3-0 Vicryl. Dermabond was applied over closed skin incisions. Attention was turned to the vagina. Specimen was removed from the vagina and handed off of the sterile field. Catheter was removed from the bladder. Patient was awakened from anesthesia and taken to recovery in stable condition. Condition: stable Disposition: floor Specimens:: 1. Uterus, bilateral fallopian tubes and bilateral ovaries Complications:: None
[2023-11-05] MEDS: LACTATED RINGERS 1000ML 1,000 ML 125 ML IV ×2 (10:56→18:33)
--- NOTE | 2023-11-05 11:00 | P.PNANES_ITS ---
[facility] Anesthesia Record Part II Anesthesia Record Part II Discharge Time: 10:20 Destination: Obstetric PACU nurse assessment reviewed?: Yes Patient Condition:: Good Anesthesia Complications:: None Swallowing reflex intact?: Yes Airway Patency: Patent Cyanosis?: No Blood Pressure: 125/71 SaO2: 97 Respiratory Rate: 16 Pulse Rate: 85 Temperature: 97.4 F Mental Status: Alert & Oriented Pain level:: 0 Nausea and/or vomitting:: None Intake, IV Amount: 0 Hydration: Adequate
[2023-11-05] MEDS: KETOROLAC 30MG/ML VIAL 30 MG IV ×2 (13:10→18:32)
[2023-11-05] MEDS: METRONIDAZ/SOD CHL 500 MG/100 ML PIGGYBACK 100 MG IV ×2 (14:27→21:33)
--- NOTE | 2023-11-05 14:35 | PC.NURSE ---
Rosie PISANO applied warm blankets to patient for an oral temp of 96.7.
--- NOTE | 2023-11-05 16:58 | P.PNANES_ITS ---
[facility] Anesthesia Record Part I Anesthesia Record I Intake, IV Amount: 2,700 Hydration: Adequate Estimated blood loss (mL): 75 Urine output (mL): 300 Blood Products used (#): none Blood Pressure: 152/92 SaO2: 95 Pulse Rate: 100 Airway Patency: Patent Respiratory Rate: 22 Temperature: 98.4 F Patient is:: Drowsy and Stable Stable to PACU at:: 16:45
--- NOTE | 2023-11-05 18:51 | PC.NURSE ---
PT AMBULATED IN THE HALLWAY WITH ASSISTANCE BY RN. WALKED THE WHOLE LENGTH OF THE HALLWAY AND BACK. TOLERATED WELL. PT REPORTS GAS PAIN IN ABDOMEN. DENIES PASSING GAS OR BM AT THIS TIME. PT IS CURRENTLY IN CHAIR IN HER ROOM SITTING UP. RESPIRATIONS REGULAR AND UNLABORED. LUNG SOUNDS CLEAR THROUGHOUT. NO COUGH NOTED. NO EDEMA NOTED. 3 ABDOMINAL INCISIONS NOTED WITH DERMABOND IN PLACE. CDI. HAND ENROBING MACHINE CORDER EQUAL. +2 PULSES NOTED THROUGHOUT. SOFT AND TENDER ABDOMEN. URINE HAS BEEN CLEAR AND YELLOW. VOIDS PER BATHROOM WITH STANDBY ASSISTANCE. BED IN LOWEST POSITION. CALL LIGHT WITHIN REACH. VSS. LR INFUSING AT 100ML/HR. PT RECEIVED FLAGYL AND ANCEF THIS SHIFT AND TOLERATED WELL.
[2023-11-05] MEDS: POLYETHYLENE GLYCOL 3350 17 GM PACKET PO (21:33)
--- NOTE | 2023-11-05 21:33 | PC.NURSE ---
FLAGYL 500MG IV GIVEN AND MIRALAX 17 GRAMS GIVEN IN APPLE JUICE.PT REPORTS HER PAIN IS TOLERABLE AT A 4-5 AND ONLY WANTS THE TORADOL AND TYLENOL WHEN NOE.
--- NOTE | 2023-11-05 22:30 | PC.NURSE ---
ANCEF 1 GRAM HUNG AT THIS TIME.LIGHTS TURNED OUT,PT REPORTS SHE IS GOING TO SLEEP.NO NEEDS OR CONCERNS VOICED
[2023-11-06 00:20] VITALS: BP 94/48; PULSE 77; RESP 17; TEMP 36.6; O2SAT 100
[2023-11-06] MEDS: ACETAMINOPHEN 500MG TAB 1000 MG PO ×2 (00:23→06:27)
[2023-11-06] MEDS: KETOROLAC 30MG/ML VIAL 30 MG IV (00:24)
--- NOTE | 2023-11-06 00:24 | PC.NURSE ---
PT WAS SLEEPING,EASILY AROUSED TO GIVE PT HER NOE.TORADOL 30MG IVP AND TYLENOL 1000MG PO.PT DENIES ANY PAIN AT THIS TIME,REPORTS SHE VERY COMFORTABLE,NO NEEDS OR CONCERNS VOICED
[2023-11-06 04:15] VITALS: BP 93/49; PULSE 72; RESP 17; TEMP 36.7; O2SAT 96
--- NOTE | 2023-11-06 04:15 | PC.NURSE ---
NO ACUTE CHANGES FROM PREVIOUS ASSESSMENT.LUNGS CLEAR,RESP.EVEN AND UNLABORED,POSITIVE BOWEL SOUNDS X4 QUADS,3 ABD.LAP SITES WITH DERMABOND.PT HAS SLEPT TONIGHT,MEDICATED WITH HER NOE.TYLENOL AND TORADOL.
--- NOTE | 2023-11-06 05:15 | PC.NURSE ---
LAB HERE TO DRAW BMP AND CBC
[2023-11-06 05:49] LABS: Basophils % 0.3 % (0.1-2.0); Eosinophils % 0.3 % (0.1-12.0); Hematocrit 34.7 % (37.0-47.0); Hemoglobin 11.9 g/dL (12.2-16.2); Lymphocytes # 2.2 K/mm3 (0.7-4.5); Lymphocytes % 22.6 % (10-50); Mean Corpuscular HGB Conc 34.2 g/dL (31.8-35.4); Mean Corpuscular Hemoglobin 31.4 pg (27.0-31.2); Mean Platelet Volume 7.6 fl (7.4-10.4); Monocytes # 0.7 K/mm3 (0.1-1.0); Monocytes % 6.9 % (1.7-9.3); Neutrophils # 6.9 K/mm3 (1.8-7.8); Neutrophils % 69.9 % (37.0-80.0); Platelet Count 288 K/mm3 (142-424); Red Blood Count 3.78 M/mm3 (4.20-5.40); Red Cell Distribution Width 13.4 % (11.5-17.5); White Blood Count 9.8 K/mm3 (4.8-10.8)
[2023-11-06 05:54] LABS: Chloride 108 mmol/L (98-107); Sodium 138 mmol/L (136-145)
[2023-11-06 05:57] LABS: Blood Urea Nitrogen 12 mg/dl (7-17); Calcium 9.1 mg/dl (8.4-10.2); Carbon Dioxide 30 mmol/L (22.0-30.0); Creatinine Clearance Estimated 94 mL/min (50-200); Estimated Glomerular Filt Rate 87 ml/min (>60); GFR (African American) 105 ML/MIN (>60); Glucose 100 mg/dl (74-100)
[2023-11-06 07:28] VITALS: RESP 16; O2SAT 97
[2023-11-06 07:32] VITALS: BP 114/62; PULSE 66; RESP 16; TEMP 36.8; O2SAT 97
[2023-11-06] MEDS: POLYETHYLENE GLYCOL 3350 17 GM PACKET PO (08:25)
[2023-11-06] MEDS: IBUPROFEN 400 MG TABLET 800 MG PO (08:26)
--- NOTE | 2023-11-06 08:33 | EXP.DC.SUM ---
General Admission date:: 11/05/23 Discharge date: 11/06/23 HPI HPI HPI: POD # 1 s/p TLH, BSO Resting comfortably in bed. Pain controlled. No vaginal bleeding. Voiding without difficulty and passing flatus. Tolerating regular diet. Denies fever/chills, chest pain and shortness of breath. No dizziness/lightheadedness. Ambulating well ad odalys. Hospital Course Hospital Course Hospital Course: Mrs Ivana Lutz is very pleasant 58 yo P2002 who presents to [facility] for scheduled procedure. She complains of dyspareunia and ovarian cyst. Pelvic ultrasound 09/22/23 demonstrated anteverted uterus normal in shape and size. The endometrium is thin. There are 2 fibroids within the uterus measuring 1.1 cm and 0.9 cm. They are smaller than her previous exam 05/20/2023. There is a 5.7 cm cyst that persists on the right ovary. There are echogenicities within the cyst fluid possibly indicating mucus. No fluid in the cul-de-sac. We have been monitoring ovarian cyst since February 2023. She reports continued dyspareunia with no improvement with vaginal estrogen cream or lubrication. She reports pain is deep. She would like to proceed with definitive surgical intervention with hysterectomy, BSO. Surgical history significant for cholecystectomy and x 2 with tubal ligation at time of last . Hot flashes well controlled with Veozah. She underwent total laparoscopic hysterectomy, bilateral salpingo-oophorectomy on 11/05/23. EBL 100 mL. She did well postoperatively. Resting comfortably in bed. Pain controlled. No vaginal bleeding. Voiding without difficulty and passing flatus. Tolerating regular diet. Denies fever/chills, chest pain and shortness of breath. No dizziness/lightheadedness. Vital signs stable, afebrile. Heart regular rate and rhythm. Lungs clear to auscultation. Abdomen soft, nontender, good bowel sounds. No lower extremity edema. Ambulating well ad odalys. She was discharged home on POD # 1 doing well with instructions to follow-up in 2 weeks or sooner if needed. Exam Data for Last 24 hours Vital signs and Labs for Last 24 Hours: Temp Pulse Resp BP Pulse Ox O2 Del Method 98.2 F 66 16 114/62 97 Room Air 11/06/23 07:32 11/06/23 07:32 11/06/23 07:32 11/06/23 07:32 11/06/23 07:32 11/06/23 07:32 Laboratory Results - last 24 hr 11/06/23 05:15: WBC 9.8, RBC 3.78 L, Hgb 11.9 L, Hct 34.7 L, MCV 92.0, MCH 31.4 H, MCHC 34.2, RDW 13.4, Plt Count 288, MPV 7.6, Neut % (Auto) 69.9, Lymph % (Auto) 22.6, [place] % (Auto) 6.9, Eos % (Auto) 0.3, Baso % (Auto) 0.3, Neut # (Auto) 6.9, Lymph # (Auto) 2.2, [place] # (Auto) 0.7, Eos # (Auto) 0.0, Baso # (Auto) 0.0, Sodium 138, Potassium 4.0, Chloride 108 H, Carbon Dioxide 30, Anion Gap 4.0 L, BUN 12, Creatinine 0.70, Estimated Creat Clear 94, Estimated GFR 87, Est GFR ( Amer) 105, Glucose 100, Calcium 9.1 I & O for Last 24 hours: Intake & Output 11/03/23 11/04/23 11/05/23 11/06/23 23:59 23:59 23:59 23:59 Intake Total 4831 / 4831 1428 / 1428 Output Total 2600 / 2600 700 / 700 Balance 2231 / 2231 728 / 728 Weight 147 lb Constitutional Constitutional: no acute distress and cooperative *Routine HEENT Exam Head: Present normocephalic and atraumatic Eye: Absent conjunctivae pink ENT: Present mucous membranes moist *Routine Neck Exam Neck: Present full ROM *Routine Respiratory Exam Respiratory: Present CTA bilaterally and normal respiratory effort *Routine Cardiovascular Exam Cardiovascular: Present RRR *Routine Abdominal Exam Abdominal: Present soft and normoactive bowel sounds; Absent tenderness or distended Comments: Laparoscopic incisions clean/dry/intact, dermabond present over incisions. No erythema, dehiscence or drainage *Routine Rectal Exam Patient deferred: visual exam *Routine Exam Patient deferred: external exam *Routine Extremities Exam Extremities: Present full ROM; Absent edema or calf tenderness *Routine Neurological Exam Neurological: Present alert, moving all extremities and normal speech Routine Psychiatric Exam Psychiatric: Present normal affect and cooperative Results Data Completed and Pending Labs on day of discharge: Labs from last 24 hours 11/06/23 05:15 WBC 9.8 RBC 3.78 L Hgb 11.9 L Hct 34.7 L MCV 92.0 MCH 31.4 H MCHC 34.2 RDW 13.4 Plt Count 288 MPV 7.6 Neut % (Auto) 69.9 Lymph % (Auto) 22.6 [place] % (Auto) 6.9 Eos % (Auto) 0.3 Baso % (Auto) 0.3 Neut # (Auto) 6.9 Lymph # (Auto) 2.2 [place] # (Auto) 0.7 Eos # (Auto) 0.0 Baso # (Auto) 0.0 Sodium 138 Potassium 4.0 Chloride 108 H Carbon Dioxide 30 Anion Gap 4.0 L BUN 12 Creatinine 0.70 Estimated Creat Clear 94 Estimated GFR 87 Est GFR ( Amer) 105 Glucose 100 Calcium 9.1 DS: Diagnosis Discharge Diagnosis (1) Right groin pain: Status: Acute Code(s): R10.31 - Right lower quadrant pain (2) Ovarian cyst: Status: Acute Code(s): N83.209 - Unspecified ovarian cyst, unspecified side Qualifiers: Laterality: right Qualified Code(s): N83.201 - Unspecified ovarian cyst, right side (3) Fibroid, uterine: Status: Acute Code(s): D25.9 - Leiomyoma of uterus, unspecified Qualifiers: Uterine leiomyoma location: unspecified location Qualified Code(s): D25.9 - Leiomyoma of uterus, unspecified (4) Vaginal atrophy: Status: Acute Code(s): N95.2 - Postmenopausal atrophic vaginitis (5) Dyspareunia in female: Status: Acute Code(s): N94.10 - Unspecified dyspareunia Meds Home Medications and Allergies Home Medications Medication Instructions Recorded Confirmed Type fezolinetant 45 mg tablet (Veozah) 45 mg PO DAILY menopausal symptoms 11/05/23 11/05/23 History ibuprofen 800 mg tablet 800 mg PO Q8H PRN pain #20 tabs 11/06/23 Rx New Prescriptions to Start Prescriptions: Ivana Riggs Allergies Allergy/AdvReac Type Severity Reaction Status Date / Time morphine Allergy Verified 11/05/23 06:20 Discharge Plan Disposition Patient Disposition: Home, Self-Care Condition: Good Follow up Plan Follow up with: Ivana Davis DO [Staff Physician] - Enter time for follow up Prescriptions/Medication Reconciliation: New ibuprofen 800 mg tablet 800 mg PO Q8H PRN (Reason: pain) Qty: 20 0RF Continued Veozah 45 mg tablet 45 mg PO DAILY Problem Reconciliation Problems Reviewed?: Yes Patient Discharge Instructions ACTIVITY: Limited activity DIET: continue same diet and regular diet Additional Instructions: You had a total laparoscopic hysterectomy and bilateral salpingo-oophorectomy. This means that your uterus, cervix, fallopian tubes and ovaries were removed. The top of your vagina is closed with dissolvable sutures. You will follow-up in office for a postop visit at 2 weeks and at 6 weeks. At your 6-week postop appointment you will have a pelvic exam to ensure your cuff is healing well. Activity: - No lifting more than 5 lbs for 6 weeks. - No driving while you are taking narcotic pain medication and/or for 7 days - Nothing in the vagina for 6 weeks (no tampons, no intercourse) - No tub baths/hot tubs or swimming pools for 6 weeks Medications: - Ibuprofen (a nonsteroidal anti-inflammatory) for pain. Please take the ibuprofen scheduled every 8 hours for the first 2-3 days as this will help control your pain - Tylenol 500 mg for pain. Take 1-2 tablets every 6 hours scheduled for the first 2-3 days as this will also help with pain. - Oxycodone (a narcotic pain medication) use the narcotic pain medication for breakthrough or severe pain. You will want to stop the narcotic pain medication first. Narcotic pain medication can be habit forming so please only use this medication if you need it. - Miralax (a stool softener) use twice daily the first 3 days after surgery then as need for constipation. General anesthesia and narcotics can increase your risk for constipation - Simethicone: a gas medication for bloating and gas pain you may experience in the next 1-2 weeks. Please call the office or return to the ER if you have any of the followin. Heavy vaginal bleeding 2. Pain that does not respond to your narcotic pain medication 3. Fever/chills Questions or concerns: It is my privilege to be your doctor. Please let me know if you have other questions or concerns. Ivana Davis DO [facility] [place], [place] [address] Patient Instructions: Hysterectomy -- Laparoscopic Surgery Providers Primary Care Provider: Isauro Leach Admit Provider: Ivana Davis Attending Provider: Ivana Davis
--- NOTE | 2023-11-06 08:33 | PC.NURSE ---
Assisted pt to the bathroom. Pt ambulated with ease. She rates her pain 3/10. She has not had a bowel movement but is passing gas. Abdomen is soft. Miralax in apple juice and motrin given. IV discontinued. Pt. up to chair. No needs at this time.
--- NOTE | 2023-11-06 09:14 | PC.NURSE ---
Clinic pharmacy at bedside with medications
== END 2023-11-06 09:39 | disposition home or self-care (01) ==
LOC: OB 06:08
PROVIDERS: Admitting Provider Obstetrics & Gynecology; PCP Internal Medicine Adolescent Medicine; Visit Provider Obstetrics & Gynecology
PROC: (CPT 58571; principal; 2023-11-05 07:30)
DX: R10.31 Right lower quadrant pain (principal); D25.9 Leiomyoma of uterus, unspecified; N83.209 Unspecified ovarian cyst, unspecified side; N94.10 Unspecified dyspareunia
CPT/HCPCS: 58571; 80048; 85025; 88307; 96374; J3490; G0378; J2405

== ENCOUNTER 2023-12-25 10:18 | Outpatient (CLI) | payer OTHER, SELFPAY ==
[2023-12-25 11:48] LABS: Anion Gap 10.2 mEq/L (5-15); Blood Urea Nitrogen 21 mg/dl (7-17); Carbon Dioxide 29 mmol/L (22.0-30.0); Chloride 104 mmol/L (98-107); Estimated Glomerular Filt Rate 87 ml/min (>60); Potassium 4.2 mmoL/L (3.5-5.1); Sodium 139 mmol/L (136-145)
[2023-12-25 11:49] LABS: Alanine Aminotransferase 26 U/L (12-78); Albumin Level 4.6 g/dl (3.5-5.0); Albumin/Globulin Ratio 1.6 (1.1-1.8); Alkaline Phosphatase 68 U/L (38-126); Aspartate Amino Transferase 29 U/L (14-36); Bilirubin,Total 0.6 mg/dl (0.2-1.3); Calcium 10.2 mg/dl (8.4-10.2); GFR (African American) 105 ML/MIN (>60); Globulin 2.9 g/dL (1.3-3.2); Glucose 77 mg/dl (74-100); Total Protein,Serum 7.5 g/dl (6.3-8.2)
== END 2023-12-25 23:59 | disposition home or self-care (01) ==
LOC: LAB 10:19
PROVIDERS: PCP Internal Medicine Adolescent Medicine; Visit Provider Obstetrics & Gynecology
DX: N95.1 Menopausal and female climacteric states (principal)
CPT/HCPCS: 36415; 80053

== ENCOUNTER 2024-05-28 20:09 | Emergency (ER) | payer OTHER, SELFPAY ==
[2024-05-28 20:21] VITALS: BP 145/70; PULSE 88; RESP 80; TEMP 36.8; O2SAT 98; BMI 25.7
--- NOTE | 2024-05-28 20:40 | CT_ITS ---
PROCEDURE INFORMATION: Exam: CT Abdomen And Pelvis With Contrast Exam date and time: 05/28/2024 9:17 PM Age: 58 years old Clinical indication: Abdominal pain; Flank; Right; Additional info: Rlq pain, right flank pain, urinary symptoms TECHNIQUE: Imaging protocol: Computed tomography of the abdomen and pelvis with contrast. Radiation optimization: All CT scans at this facility use at least one of these dose optimization techniques: automated exposure control; mA and/or kV adjustment per patient size (includes targeted exams where dose is matched to clinical indication); or iterative reconstruction. Contrast material: ISOVUE; Contrast volume: 75 ml; Contrast route: IV; COMPARISON: US TRANSVAGINAL 09/22/2023 8:06 AM FINDINGS: Lungs: Several 2-3 mm right lower lobe nodules on axial images 4 and 6. Liver: Normal. No mass. Gallbladder and biliary ducts: The gallbladder is absent. There is no biliary ductal dilation. Pancreas: Normal. No ductal dilation. Spleen: Normal. No splenomegaly. Adrenal glands: Normal. No mass. Kidneys and ureters: Enhancement of the wall of the right renal pelvis and ureter consistent with pyelitis and ureteritis. No obstructing stone. Normal left kidney and ureter. Stomach and bowel: Unremarkable. No obstruction. No mucosal thickening. Appendix: No evidence of appendicitis. Intraperitoneal space: Unremarkable. No free air. No significant fluid collection. Vasculature: Mild calcific atherosclerotic disease without aneurysm or dissection. Lymph nodes: Unremarkable. No enlarged lymph nodes. Urinary bladder: Unremarkable as visualized. Reproductive: The uterus is absent. Bones/joints: Mild degenerative changes of the spine. No acute fracture. Soft tissues: Unremarkable. IMPRESSION: 1. Findings consistent with right pyelitis and ureteritis. No obstructing stone is evident. 2. Several small right lower lobe pulmonary nodules.As per Fleischner Society guidelines for follow-up and management of multiple pulmonary nodules measuring less than 6 mm: For patients at low risk, no specific followup is recommended. For patients at high risk, consider followup CT in 12 months.
[2024-05-28] MEDS: ONDANSETRON 4MG/2ML VIAL 4 MG IV (20:45)
[2024-05-28] MEDS: 0.9 % SODIUM CHLORIDE 1000ML 1,000 ML 999 ML IV (20:45)
[2024-05-28 20:59] LABS: Microscopic, Urine URINE MICROSCOPIC (MICROSCOPIC)
[2024-05-28 21:00] LABS: Albumin Level 4.8 g/dl (3.5-5.0); Chloride 104 mmol/L (98-107); Sodium 140 mmol/L (136-145)
[2024-05-28 21:01] LABS: Basophils # 0.1 K/mm3 (0-0.2); Eosinophils # 0.1 K/mm3 (0.0-0.4); Eosinophils % 1.3 % (0.1-12.0); Hematocrit 46.5 % (37.0-47.0); Hemoglobin 14.4 g/dL (12.2-16.2); Lymphocytes # 2.6 K/mm3 (0.7-4.5); Lymphocytes % 25.7 % (10-50); Mean Corpuscular HGB Conc 30.9 g/dL (31.8-35.4); Mean Corpuscular Hemoglobin 28.7 pg (27.0-31.2); Mean Corpuscular Volume 92.8 fl (81-99); Monocytes # 0.6 K/mm3 (0.1-1.0); Neutrophils # 6.6 K/mm3 (1.8-7.8); Platelet Count 483 K/mm3 (142-424); Potassium 4.1 mmoL/L (3.5-5.1); Red Blood Count 5.01 M/mm3 (4.20-5.40); Red Cell Distribution Width 13.4 % (11.5-17.5)
[2024-05-28 21:02] LABS: Appearance,Urine CLEAR (Clear); Bilirubin,Urine Negative (Negative); Blood, Urine 2+ (Negative); Color,Urine YELLOW (Yellow); Glucose,Urine (UA) Negative (Negative); Ketones,Urine Negative (Negative); Leukocyte Esterase,Urine 2+ (Negative); Nitrate,Urine Negative (Negative); Protein,Urine Negative (Negative); Specific Gravity, Urine <= 1.005 (1.005-1.030); Urobilinogen,Urine 0.2 EU/dl (0.2)
[2024-05-28 21:03] LABS: Alanine Aminotransferase 32 U/L (12-78); Albumin/Globulin Ratio 1.1 (1.1-1.8); Alkaline Phosphatase 82 U/L (38-126); Anion Gap 11.1 mEq/L (5-15); Aspartate Amino Transferase 35 U/L (14-36); Bilirubin,Total 0.5 mg/dl (0.2-1.3); Blood Urea Nitrogen 21 mg/dl (7-17); Calcium 9.9 mg/dl (8.4-10.2); Carbon Dioxide 29 mmol/L (22.0-30.0); Creatinine Clearance Estimated 84 mL/min (50-200); Estimated Glomerular Filt Rate 74 ml/min (>60); GFR (African American) 90 ML/MIN (>60); Globulin 4.2 g/dL (1.3-3.2); Glucose 95 mg/dl (74-100); Lipase 148 U/L (23-300)
[2024-05-28 21:16] LABS: Bacteria,Urine 3+ /lpf; WBC,Urine 50-100 #/hpf (0-3)
[2024-05-28] MEDS: IOPAMIDOL-370 (76%);100ML BOTTLE 75 ML IV (21:23)
[2024-05-28] MEDS: SODIUM CHLORIDE 0.9% 10ML SYR (RAD ONLY) 10 ML IV (21:23)
--- NOTE | 2024-05-28 21:28 | ED_ITS ---
<Statement entered by Pedro Wing MD - 06/03/24 17:01> I was consulted by the LÓPEZ, and we discussed the complexity of the problems being addressed. I approved the treatment and management plan for this patient's care in the emergency department, thus performing a substantive portion of the medical decision making. Pedro Wing MD, DARWIN, FACEP Discharge Plan Disposition Patient Disposition: Home, Self-Care Condition: Good Prescriptions Prescriptions: New cefdinir 300 mg capsule 300 mg PO BID 10 Days Qty: 20 0RF ondansetron 4 mg tablet,disintegrating 4 mg PO Q8H PRN (Reason: nausea and vomiting) 3 Days Qty: 12 0RF No Action Veozah 45 mg tablet 45 mg PO DAILY Referrals Follow up/Referrals: Isauro Leach MD [Primary Care Provider] - See instructions Activity Restrictions/Add. Instructions Additional Instructions/Restrictions: You were seen for pyelonephritis. You will need to take antibiotics. Return to the ED for any fevers, vomiting or increased pain. You also had some pulmonary nodules that need to be discussed with your PCP. Clinical Impressions Clinical Impression: Pyelonephritis Instructions Patient Instructions: DI for Kidney Infection Print Language Print Language: Danish Discharge ED Provider: Pedro Wing General Adult HPI General Chief complaint: Abdominal Pain Stated complaint: Pain in right side with nausea Time Seen by Provider: 05/28/24 20:21 Mode of Arrival: Family Vehicle Source of Information: Patient Limitations: No Limitations Description of Symptoms (Recalled from ER Triage Doc. by RN): 58 yo female complains of rlq pain, acute onset that began around 1730 this evening. Nausea, but denies vomiting, diarrhea. Patient is a&ox4. vss. EMV 15. Pain 8/10. History of Present Illness HPI narrative: Patient presents complaining of right lower quadrant abdominal pain. She reports that the pain started around 1730 this evening. She has had some urinary frequency and dysuria for several days. Denies any fever. She did have nausea without vomiting. Denies any exacerbating or alleviating factors. She describes her pain as aching, pressure and nonradiating. Her pain is 5 out of 10. complaint: abdominal pain Onset (ago): hour(s) Location: abdomen Severity: moderate Severity scale (1-10): 5 Quality: aching Consistency: constant Relieving factors: none Exacerbating factors: none Associated symptoms: nausea/vomiting Treatments prior to arrival: none Related Data Home Medications ?Medication ?Instructions ?Recorded ?Confirmed fezolinetant 45 mg tablet (Veozah) 45 mg PO DAILY menopausal symptoms 11/05/23 12/25/23 Previous Rx's ?Medication ?Instructions ?Recorded cefdinir 300 mg capsule 300 mg PO BID 10 days #20 caps 05/28/24 ondansetron 4 mg disintegrating 4 mg PO Q8H PRN nausea and 05/28/24 tablet vomiting 3 days #12 tabs Allergies Allergy/AdvReac Type Severity Reaction Status Date / Time morphine Allergy Verified 12/25/23 09:40 [facility] Disclaimer: The information contained in this section may have been updated after the patient was seen, as this information can be updated by other users. Medical History Right groin pain Fibroid, uterine Ovarian cyst Vaginal atrophy Hot flashes due to menopause Dyspareunia in female delivery delivered Surgical History History of delivery S/P bilateral salpingo-oophorectomy with TLH S/P laparoscopic hysterectomy H/O tubal ligation History of cholecystectomy Family History Other Alcoholism Cancer Coronary artery disease Diabetes Heart attack Hyperlipidemia Hypertension Thyroid disorder Social History Smoking Status: Unknown if ever smoked second hand exposure: No alcohol intake: never substance use type: denies use current occupational status: employed Travel in the last 8 weeks: None household members: spouse housing: house current occupational exposures/hazards: No caffeine: Yes ROS Obtained: Yes Systems reviewed as appropriate & no additional complaints except as documented Physical Exam General General appearance: alert and in no apparent distress Head Head exam: atraumatic and normocephalic Eye Eye exam: Present normal appearance and EOMI Chest Chest inspection: Present symmetric chest wall rise Respiratory Respiratory exam: Present normal lung sounds bilaterally; Absent wheezes or stridor Cardiovascular Cardiovascular exam: Present regular rate and normal rhythm; Absent systolic murmur Abdominal Exam Abdominal exam: Present soft, tenderness (RLQ, right CVA) and normal bowel sounds; Absent guarding or rebound Extremities Exam Extremities exam: Present full ROM Neurological Exam Neurological exam: Present alert and oriented X3 Psychiatric Psychiatric exam: Present normal affect and normal mood Skin Skin exam: Present warm, dry and intact Medical Decision Making Chuck Inquiry Pt receiving controlled substance: No Vital Signs: 05/28/24 20:21 Temperature 98.2 F Temperature Source Oral Pulse Rate [Right Brachial] 88 Respiratory Rate 80 H Blood Pressure [Right Arm] 145/70 H Blood Pressure Mean [Right Arm] 95 Blood Pressure Source [Right Arm] Automatic Cuff Blood Pressure Position [Right Arm] Sitting 02 Sat by Pulse Oximetry 98 Oxygen Delivery Method Room Air Lab Data Lab Results 05/28/24 20:15: Urine Color Yellow, Urine Appearance Clear, Urine pH 6.0, Ur Specific [place] <= 1.005, Urine Protein Negative, Urine Glucose (UA) Negative, Urine Ketones Negative, Urine Blood 2+ A, Urine Nitrate Negative, Urine Bilirubin Negative, Urine Urobilinogen 0.2, Ur Leukocyte Esterase 2+ A, Urine RBC 5-10, Urine WBC 50-100, Ur Squamous Epith Cells 10-20, Urine Bacteria 3+ 05/28/24 20:20: WBC 10.0, RBC 5.01, Hgb 14.4, Hct 46.5, MCV 92.8, MCH 28.7, MCHC 30.9 L, RDW 13.4, Plt Count 483 H, MPV 8.0, Neut % (Auto) 66.0, Lymph % (Auto) 25.7, [place] % (Auto) 6.0, Eos % (Auto) 1.3, Baso % (Auto) 1.0, Neut # (Auto) 6.6, Lymph # (Auto) 2.6, [place] # (Auto) 0.6, Eos # (Auto) 0.1, Baso # (Auto) 0.1, Sodium 140, Potassium 4.1, Chloride 104, Carbon Dioxide 29, Anion Gap 11.1, BUN 21 H, Creatinine 0.80, Estimated Creat Clear 84, Estimated GFR 74, Est GFR ( Amer) 90, Glucose 95, Calcium 9.9, Total Bilirubin 0.5, AST 35, ALT 32, Alkaline Phosphatase 82, Total Protein 9.0 H, Albumin 4.8, Globulin 4.2 H, Albumin/Globulin Ratio 1.1, Lipase 148 05/28/24 20:20 05/28/24 20:20 Orders (Tests/Meds): ED MEDICATIONS Generic Name Dose Route Start Last Admin Trade Name Freq PRN Reason Stop Dose Admin Ceftriaxone Sodium 1 gm/ 50 mls @ 100 mls/hr 05/28/24 21:30 05/28/24 21:43 Sodium Chloride IV 06/07/24 21:29 100 mls/hr Q24H NOE Administration Sodium Chloride 10 ml 05/28/24 21:22 05/28/24 21:23 Sodium Chloride 0.9% 10ml Syr (Rad Only) IV 06/27/24 21:21 10 ml NEEDED PRN Administration Maintain IV Site Discontinued Medications Generic Name Dose Route Start Last Admin Trade Name Freq PRN Reason Stop Dose Admin Sodium Chloride 1,000 mls @ 999 mls/hr 05/28/24 20:45 05/28/24 20:45 Sod Chlor 0.9% 1000ml Bag IV 05/28/24 21:45 999 mls/hr .Q1H1M NOE Administration Iopamidol 75 ml 05/28/24 21:22 05/28/24 21:23 Iopamidol-370 (76%);100ml Bottle IV 05/28/24 21:23 75 ml ONCE ONE Administration Ketorolac Tromethamine 30 mg 05/28/24 21:28 05/28/24 21:43 Ketorolac 30mg/Ml Vial IV 05/28/24 21:29 30 mg ONCE ONE Administration Ondansetron HCl 4 mg 05/28/24 20:34 05/28/24 20:45 Ondansetron 4mg/2ml Vial IV 05/28/24 20:35 4 mg ONCE ONE Administration ORDERS Category Date Time Status CT abdomen pelvis w con Stat Cat Scan 05/28/24 20:40 Completed Complete Blood Count Auto Diff Stat Lab 05/28/24 20:20 Completed Comprehensive Metabolic Panel Stat Lab 05/28/24 20:20 Completed Lipase Stat Lab 05/28/24 20:20 Completed Urinalysis and Microscopic Stat Lab 05/28/24 20:15 Completed Urine Culture Stat Micro 05/28/24 20:[address] Scan: Abdomen and Pelvis Time Received: 22:[address] Reviewed: Yes I have viewed the radiologist's interpretation Findings Narrative: IMPRESSION: 1. Findings consistent with right pyelitis and ureteritis. No obstructing stone is evident. 2. Several small right lower lobe pulmonary nodules.As per Fleischner Society guidelines for follow-up and management of multiple pulmonary nodules measuring less than 6 mm: For patients at low risk, no specific followup is recommended. For patients at high risk, consider followup CT in 12 months. US Data ED US Reviewed: Yes I have viewed radiologist's interpretation Medical Decision Narrative: In summary patient is a 58-year-old female who presents the emergency department for evaluation of right lower quadrant abdominal pain. Patient is hemodynamically stable upon arrival, afebrile. Right lower quadrant and right CVA tenderness on exam. Differential diagnosis includes pyelonephritis, ureteral stone, appendicitis. Initial workup will be conducted with labs, urinalysis, urine culture, CT abdomen and pelvis. Initial inventions include fluid bolus, Zofran, Toradol. Initial workup reviewed by me UTI and evidence of pyelonephritis on CT. Upon repeat evaluation patient had acceptable resolution of symptoms. Given this patient is appropriate for discharge at this time and will be discharged with a prescription for cefdinir. She was given a dose of Rocephin in the emergency department.. I informally interpreted the patient's chest x-ray or CT read and is remarkable for bladder wall thickening. \ Critical Care Critical Care Time Critical Care Time: No
[2024-05-28] MEDS: CEFTRIAXONE SODIUM 1 GM in 0.9 % SODIUM CHLORIDE 50 ML IV (21:43)
[2024-05-28] MEDS: KETOROLAC 30MG/ML VIAL 30 MG IV (21:43)
--- NOTE | 2024-05-28 22:39 | PC.NURSE ---
rounded on pt at this time. pt voices no needs.
[2024-05-28 23:17] VITALS: BP 101/67; PULSE 68; RESP 19; TEMP 36.8; O2SAT 99
--- NOTE | 2024-05-30 08:43 | PC.NURSE ---
discussed urine culture with , pt dc with cefdinir, ntd
--- NOTE | 2024-06-01 10:16 | PC.NURSE ---
URINE CULTURE DISCUSSED WITH DR FOFANA, NO NEW ORDERS
== END 2024-05-28 23:19 | disposition home or self-care (01) ==
PROVIDERS: Physician Assistant; Emergency Provider Student in an Organized Health Care Education/Training Program; PCP Internal Medicine Adolescent Medicine
DX: N10 Acute pyelonephritis (principal); B96.29 Other Escherichia coli [E. coli] as the cause of diseases classified elsewhere; R10.31 Right lower quadrant pain; R30.0 Dysuria; R35.0 Frequency of micturition
CPT/HCPCS: 74177; 80053; 81001; 83690; 85025; 87086; 87088; 87186; 96361; 96365; 96366; 96375; 99285; J0696; J1885; J2405; J7030; Q9967

== ENCOUNTER 2024-06-16 11:36 | Outpatient (CLI) | payer OTHER, SELFPAY ==
[2024-06-16 18:09] LABS: Microscopic, Urine URINE MICROSCOPIC (MICROSCOPIC)
[2024-06-16 19:04] LABS: Appearance,Urine CLEAR (Clear); Bilirubin,Urine Negative (Negative); Blood, Urine Negative (Negative); Color,Urine YELLOW (Yellow); Glucose,Urine (UA) Negative (Negative); Ketones,Urine Negative (Negative); Leukocyte Esterase,Urine Negative (Negative); Nitrate,Urine Negative (Negative); Protein,Urine Negative (Negative); Specific Gravity, Urine >= 1.030 (1.005-1.030); Urobilinogen,Urine 0.2 EU/dl (0.2)
[2024-06-16 19:18] LABS: Bacteria,Urine 2+ /lpf; RBC,Urine Occasional #/hpf (0-3); WBC,Urine Occasional #/hpf (0-3)
== END 2024-06-16 23:59 | disposition home or self-care (01) ==
LOC: LAB.DROPOF 06-17 11:37
PROVIDERS: PCP Student in an Organized Health Care Education/Training Program; Visit Provider Student in an Organized Health Care Education/Training Program
DX: N12 Tubulo-interstitial nephritis, not specified as acute or chronic (principal)
CPT/HCPCS: 81001; 87086

== ENCOUNTER 2024-07-05 11:41 | Outpatient (CLI) | payer OTHER, SELFPAY ==
--- NOTE | 2024-07-05 11:45 | XR_ITS ---
PROCEDURE INFORMATION: Exam: XR Chest Exam date and time: 07/05/2024 11:47 AM Age: 58 years old Clinical indication: Cough; Additional info: Cough x 1 month TECHNIQUE: Imaging protocol: Radiologic exam of the chest. Views: 2 views. COMPARISON: CT ABDOMEN PELVIS W CON 05/28/2024 9:17 PM FINDINGS: Lungs: There is a hazy consolidation of the right mid lung. Lungs are otherwise clear. Pleural spaces: Unremarkable. No pleural effusion. No pneumothorax. Heart/Mediastinum: Unremarkable. No cardiomegaly. Bones/joints: Unremarkable. IMPRESSION: There is a hazy consolidation of the right mid lung. Suspicious for infectious or inflammatory etiology. Lungs are otherwise clear.
[2024-07-05 17:45] LABS: Bordetella Pertussis Not Detected (NotDetected); Chlamydophila Pneumoniae, PCR Not Detected (NotDetected); Coronavirus 19, PCR Not Detected (NotDetected); Coronavirus 229E Not Detected (NotDetected); Coronavirus NL63 Not Detected (NotDetected); Coronavirus OC43 Not Detected (NotDetected); Coronovirus HKU1,PCR Not Detected (NotDetected); Human Metapneumovirus Not Detected (NotDetected); Influenza A, PCR Not Detected (NotDetected); Influenza AH1, 2009 Not Detected (NotDetected); Influenza AH1, PCR Not Detected (NotDetected); Influenza AH3,PCR Not Detected (NotDetected); Influenza B, PCR Not Detected (NotDetected); Mycoplasma Pneumoniae, PCR Not Detected (NotDetected); Parainfluenza 1, PCR Not Detected (NotDetected); Parainfluenza 2, PCR Not Detected (NotDetected); Parainfluenza 3, PCR Not Detected (NotDetected); Parainfluenza 4, PCR Not Detected (NotDetected); Respiratory Syncytial Virus Not Detected (NotDetected); Rhinovirus/Enterovirus Not Detected (NotDetected)
[2024-07-11 22:48] LABS: Adenovirus,PCR Not Detected (NotDetected)
== END 2024-07-05 23:59 | disposition home or self-care (01) ==
LOC: LAB 11:41
PROVIDERS: PCP Student in an Organized Health Care Education/Training Program; Visit Provider Student in an Organized Health Care Education/Training Program
DX: R05.9 Cough, unspecified (principal); R09.81 Nasal congestion
CPT/HCPCS: 71046; 87265; 87486; 87581; 87632; 87635

== ENCOUNTER 2025-05-02 09:18 | Outpatient (CLI) | payer OTHER, SELFPAY ==
[2025-05-02 10:20] LABS: Alanine Aminotransferase 25 U/L (12-78); Albumin Level 4.5 g/dl (3.5-5.0); Albumin/Globulin Ratio 1.6 (1.1-1.8); Alkaline Phosphatase 81 U/L (38-126); Anion Gap 13.8 mEq/L (5-15); Aspartate Amino Transferase 28 U/L (14-36); Bilirubin,Total 0.4 mg/dl (0.2-1.3); Blood Urea Nitrogen 13 mg/dl (7-17); Calcium 9.9 mg/dl (8.4-10.2); Carbon Dioxide 27 mmol/L (22.0-30.0); Chloride 104 mmol/L (98-107); Creatinine,Serum 0.70 mg/dl (0.52-1.04); Estimated Glomerular Filt Rate 86 ml/min (>60); GFR (African American) 104 ML/MIN (>60); Globulin 2.8 g/dL (1.3-3.2); Glucose 76 mg/dl (74-100); Potassium 4.8 mmoL/L (3.5-5.1); Sodium 140 mmol/L (136-145); Total Protein,Serum 7.3 g/dl (6.3-8.2)
== END 2025-05-02 23:59 | disposition home or self-care (01) ==
LOC: LAB 09:19
PROVIDERS: Visit Provider Obstetrics & Gynecology
DX: N95.1 Menopausal and female climacteric states (principal); Z79.899 Other long term (current) drug therapy
CPT/HCPCS: 36415; 80053

== ENCOUNTER 2025-05-16 15:51 | Outpatient (CLI) | payer OTHER, SELFPAY ==
--- NOTE | 2025-05-16 16:00 | MM_ITS ---
PROCEDURE INFORMATION: Exam: MG Bilateral Screening 3D Mammography Exam date and time: 05/16/2025 4:01 PM Age: 59 years old Clinical indication: Screening exam. TECHNIQUE: Imaging protocol: Bilateral Screening tomosynthesis and 2D mammography including computer-aided detection (CAD) when performed. COMPARISON: 1. MG MM DIG SCREENING MAMM BI W/CAD 03/10/2023 1:05 PM 2. MG MM DIG SCREENING MAMM BI W/CAD 10/30/2021 10:50 AM FINDINGS: MAMMOGRAPHY: Breast composition: There are scattered areas of fibroglandular density. Mass: No suspicious masses. Architectural distortion: None. Calcifications: No suspicious calcifications. Asymmetric density: None. Skin thickening: None. Axillary adenopathy: None. IMPRESSION: No mammographic evidence of malignancy. Annual screening is recommended unless otherwise clinically indicated. ASSESSMENT: BI-RADS Category 1: Negative.
== END 2025-05-16 23:59 | disposition home or self-care (01) ==
LOC: RAD 15:52
PROVIDERS: PCP Internal Medicine Adolescent Medicine; Visit Provider Obstetrics & Gynecology
DX: Z12.31 Encounter for screening mammogram for malignant neoplasm of breast (principal); R92.323 Mammographic fibroglandular density, bilateral breasts
CPT/HCPCS: 77063; 77067